=== PATIENT | female | born 1950 | race Caucasian/White ===

== ENCOUNTER → 2018-10-19 | Outpatient (CLI) | payer OTHER ==
[~2018-10-19] MED LIST: DICLOFENAC SODI75 MG PO; NEURONTIN 300300 M1 PO; NORCO 7.5-3251 EACH PO; NORVASC10 MG PO; OMEPRAZOLE40 MG PO; SYNTHROID75 MCG PO; TRAZODONE HCL50 MG PO; TYLENOL EXTRA500 MG PO; ZANAFLEX4 MG PO; ZOCOR20 MG PO
--- NOTE | ~2018-10-19 | PAINCON ---
[address] [address] PAIN MANAGEMENT CONSULTATION Name: CLARISSA CHAVEZ I Room: CHUCK RitterDeniseKirbyDenise#: [id number] Admission: 10/19/18 Attend Phys: Marlene Simms MD Discharge: Date of : 46 Report #: [id number] THIS REPORT FOR: //name// CC: Christoph Simms DATE OF SERVICE: 10/19/2018 CHIEF COMPLAINT: Left low back and leg pain. HISTORY OF PRESENT ILLNESS: The patient is a 68-year-old female who has been referred to the Pain Clinic for evaluation. The patient states that she has had some pain and discomfort off and on in her back over the years. She was walking down stairs on her porch. There was some sand in the area. States that she slipped and fell and landed on her back. Since that time, she has noted worsening of her back and buttocks pain. She is having pain that radiates down the left side of her leg. She has increased pain in her butt. She has had bilateral knee replacements. She has not noticed loosening of these. She is not having significant problems with her bowel or bladder. In fact, she states that she had bladder suspension in the years, and things are going reasonably well at this juncture. She states that she has spoken with her doctor. They have spoken of surgery. At this point, she feels like she is not ready to undergo surgery on her back. She does engage in quite a bit of traveling. She has relatives in [place], ____ and [place] and number of other states. She is quite busy with travel. She has been given a Medrol Dosepak. She did note some improvement during the early course of the steroid dosing, but that soon ____. She has been using [place] 7.5 mg as well as diclofenac and gabapentin. Has used the tizanidine to help with muscle spasms. She also has some left shoulder discomfort. Has a history of arthritis in the upper extremity. ALLERGIES: IODINE AND AZITHROMYCIN. MEDICATIONS: Tylenol Extra Strength 500 mg q. 6 hours p.r.n., Norvasc 10 mg, Voltaren 75 mg, gabapentin 300 mg q.i.d., hydrocodone 7.5 mg/325 q. 6 hours p.r.n., Synthroid 75 mcg, omeprazole 40 mg, Zocor 20 mg, tizanidine 4 mg t.i.d., Desyrel 50 mg 2 tablets at bedtime. PAST MEDICAL HISTORY: Bleeding tendencies, hypertension, joint disease/arthritis, hypothyroidism. Addendum to #[id number] PAST SURGICAL HISTORY: Appendectomy in 1965, bladder suspension in 1995, left as well as [place] [address] PAIN MANAGEMENT CONSULTATION Name: CLARISSA CHAVEZ I [facility] [id number] Admission: 10/19/18 Attend Phys: Marlene Simms MD Discharge: Date of : 46 Report #: [id number] SOCIAL HISTORY: She is retired, used to work at [employer]. REVIEW OF SYSTEMS: Generally good health, decreased appetite, fatigue, weakness, headaches, hearing loss, chronic sinus problems, swelling of feet, ankles, hands, loss of appetite, frequent urination, joint pain, joint stiffness, weakness of muscles and joints, muscle pain, back pain, varicose veins, easy bruising. LABORATORY DATA: MRI of the lumbar spine dated 09/29/2018 indicates: 1. Broad-based disk bulging noted asymmetric left greater than right. The findings cause mild right and moderate left lateral recess stenosis as well as foraminal narrowing on the left. 2. L2-L3, there is also a left lateral disk protrusion with left lateral stenosis and compression of the left L3 nerve root. There is also foraminal narrowing at L2-L3 on the left with compression of the left L2 nerve root. 3. L3-L4 degenerative disk bulging noted with kwsl-gq-fkrrrgbm lateral recess stenosis as well as ofnj-bc-pjxhhmsf foraminal narrowing. 4. L4-L5 disk bulge and facet arthropathy with mild left and moderate right-sided recess stenosis. There is bilateral foraminal narrowing, right greater than left. Slight compression of the right nerve root in the foramen. 5. L5-S1, small broad-based central protrusion without stenosis or nerve root compression. Facet arthropathy. 6. History of osteoarthritis. The patient has had replacements of left and right knees. The patient is not being treated for rheumatoid arthritis. 7. Height 5 feet 2 inches, weight 194 pounds, BMI is 36.5. 8. VITAL SIGNS: Blood pressure 168/75, heart rate 94, respiratory rate 16, room air saturation 94%, temperature 98.2. 9. Pain intensity 08/15. 10. Blood thinner. The patient is not on a blood thinning medication. 11. Fall risk. The patient did fall about 6 weeks ago landing on her back with worsening of her pain. 12. Hypertension. The patient is being treated for hypertension. 13. Opioid greater than 6 weeks. The patient receives her medication from one source her primary physician. 14. Risk assessment tool, low for opioid use. 15. Functional assessment . 16. Recreational drug use. The patient denies. 17. Tobacco: The patient denies use of tobacco. 18. Alcohol: The patient denies frequent use of alcoholic beverages. PHYSICAL EXAMINATION: GENERAL: The patient is a well-developed, well-nourished white female. Appears her stated age. She is alert and oriented x 3. Her affect is appropriate. Speech is fluent. HEAD, EYES, EARS, NOSE, AND THROAT: Normocephalic, atraumatic[place] [address] PAIN MANAGEMENT CONSULTATION Name: CLARISSA CHAVEZ Camille Room: [facility]#: [id number] Admission: 10/19/18 Attend Phys: Marlene Simms MD Discharge: Date of : 48 Report #: [id number] muscles intact. Sclerae nonicteric. Mucous membranes are moist. NECK: Without adenopathy or JVD. HEART: Regular rate, murmur heard 2/6. ABDOMEN: Nontender. Bowel sounds present. EXTREMITIES: Upper extremity muscle strength is judged to be 5-/5 for the major muscle groups in the upper extremity. The patient has pain and discomfort in lower back area. The patient without significant scoliosis or kyphosis. Pain is radiating down the left lateral buttocks and into the lateral portion of her thigh in the L5 dermatomal distribution. Anterior spring test is negative. Didier sign is negative. IMPRESSION: Lumbar radiculopathy, L4-L5 dermatomal distribution on the left with numbness, tingling and sensory changes, bleeding tendencies, hypertension, joint disease/arthritis, and hypothyroidism. RECOMMENDATIONS: We discussed treatment options with the patient. Risks and benefits of an epidural steroid injection were discussed. Possible complications of the procedure was discussed. A line by line review of her MRI was explained to the patient. She states that she understands. We would also recommend that she get a CD from her radiologist. She could then bring the CD back to the pain clinic at which time we could then go over it again. The possible complications of the procedure, which could be infection, worsening of pain, no improvement in pain, nerve damage, and spinal headache were discussed. The patient will return at which time she will then undergo an epidural steroid injection to help quell pain and discomfort which she is experiencing. We would like to thank you for letting us to participate in her care. We hope she continues to improve. By: [id number] [id number]. Howard Simms MD /nt
== END ==
LOC: M.PC 12:50
DX: M51.16 Intervertebral disc disorders with radiculopathy, lumbar region (principal); I10 Essential (primary) hypertension; E03.9 Hypothyroidism, unspecified; M19.90 Unspecified osteoarthritis, unspecified site; M48.061 Spinal stenosis, lumbar region without neurogenic claudication; Z79.891 Long term (current) use of opiate analgesic; Z88.1 Allergy status to other antibiotic agents; Z79.899 Other long term (current) drug therapy; Z96.653 Presence of artificial knee joint, bilateral; Z90.49 Acquired absence of other specified parts of digestive tract

== ENCOUNTER → 2018-10-21 | Outpatient (CLI) | payer OTHER ==
--- NOTE | ~2018-10-21 | PAINCON ---
[address] [address] PAIN MANAGEMENT CONSULTATION Name: CLARISSA CHAVEZ I Room: [facility] RUBINA Ritter.Kirby.#: [id number] Admission: 10/21/18 Attend Phys: Marlene Simms MD Discharge: Date of : 46 Report #: [id number] THIS REPORT FOR: //name// CC: Christoph Simms DATE OF SERVICE: 10/21/2018 CHIEF COMPLAINT: Here for an epidural steroid injection. HISTORY: The patient is a 68-year-old female who has been seen in the pain clinic because of low back pain with pain that is radiating down into the left buttocks and thigh in the L4-L5 dermatomal distribution. As you may recall, she is walking down stairs on her porch. Stepped on a nelly area. She slipped and fell and landed on her back. Since that time, she has had pain radiating down into her back and into the buttocks. She has had bilateral knee replacements. Denies any problem with her bowel or bladder function. The patient has spoken with her doctors. The topic of surgery has been suggested. At this point, the patient does not feel that she would like to consider surgery. She was given a Medrol Dosepak. Noted some improvement in this pain, but still continues to be problematic and has returned today for an epidural steroid injection. ALLERGIES: IODINE and AZITHROMYCIN. MEDICATIONS: Tylenol Extra Strength 500 mg q. 6 hours p.r.n., Norvasc 10 mg, Voltaren 75 mg, gabapentin 300 mg q.i.d., hydrocodone 7.5 mg q. 6 hours, Synthroid 75 mcg, omeprazole 40 mg, Zocor 20 mg, tizanidine 4 mg t.i.d., Desyrel 50 mg 2 tablets at bedtime. PAIN CLINIC ASSESSMENT/PQRS: 1. History of osteoarthritis. The patient has had replacement of her left and right knees. The patient is not being treated for rheumatoid arthritis. 2. Height 5 feet 2 inches, weight 199 pounds, BMI 36.5. 3. Vital signs: Blood pressure 138/79, heart rate 78, respiratory rate 16, room air saturation 91%, temperature 98.2. 4. Pain intensity 08/15/2018. 5. Fall history. The patient did slip and fall in the sand recently. 6. Hypertension. The patient is being treated for hypertension. 7. Opioids greater than 6 weeks. The patient receives medication from one source, her primary physician. 8. Risk assessment tool, low for opioid use. 9. Functional assessment tool, . 10. Recreational drug use. The patient denies use of recreational drugs. 11. Tobacco: The patient denies use of tobacco. 12. Alcohol: The patient denies frequent [place] [address] PAIN MANAGEMENT CONSULTATION Name: CLARISSA CHAVEZ I Room: [facility]#: [id number] Admission: 10/21/18 Attend Phys: Marlene Simms MD Discharge: Date of : 46 Report #: [id number] PHYSICAL EXAMINATION: GENERAL: The patient is a well-developed, well-nourished white female. Appears slightly obese. She appears her stated age. She is alert and oriented x 3. Her affect is appropriate. Speech is slow. HEENT: Normocephalic, atraumatic. Extraocular eye muscles intact. Sclerae nonicteric. Mucous membranes are moist. NECK: Without adenopathy or JVD. HEART: Regular rate, murmur is heard and is a 2/6. ABDOMEN: Nontender. Bowel sounds present. EXTREMITIES: Upper extremity muscle strength is judged to be 5/5 for the major muscle groups in the upper extremity. The patient has pain and discomfort down into her low back area. The patient without significant scoliosis, kyphosis or lordosis. The patient has pain that radiates around the left lateral buttocks into the anterior portion of her leg in the L5 dermatomal distribution. Didier's sign negative. Anterior spring test is negative. IMPRESSION: 1. Lumbar radiculopathy, L4-L5 distribution on the left with numbness, tingling and sensory changes, bleeding tendencies. 2. Hypertension. 3. Joint disease and arthritis. 4. Hypothyroidism. RECOMMENDATIONS: We discussed treatment options with the patient. Risks and benefits of a lumbar epidural steroid injection were again reviewed. Possible complications of the procedure were reviewed, they include but are not limited to infection, worsening of pain, no improvement in pain, bleeding, worsening of condition with nerve trauma or paralysis. The patient elects to proceed. PROCEDURE NOTE: The patient was taken to the procedure area. She was then assisted in getting on the examination table. Her all questions have been answered to the patient's satisfaction. Anterior, posterior as well as lateral viewing were implemented. A Betadine scrub to the patient's low back area at L4-L5 was performed. The L4-L5 interspace was then infiltrated with a 25-gauge needle. A 0.25% bupivacaine was injected. A 17-gauge Tuohy with loss of resistance technique was used to gain access to the epidural space. There was no CSF, heme or paresthesia. Total of 80 mg Depo-Medrol, 40 mg triamcinolone and 2 mL of 0.25% bupivacaine. A 0.25% bupivacaine was injected. The patient tolerated the procedure well. Pain decreased to 0 at the time of discharge. She will follow up in [place] [address] PAIN MANAGEMENT CONSULTATION Name: CLARISSA CHAVEZ I Room: [facility].#: [id number] Admission: 10/21/18 Attend Phys: Marlene Simms MD Discharge: Date of : 46 Report #: [id number] Total of 6 seconds fluoroscopy time was used. We would like to thank you for letting us participate in her care. We hope she continues to improve. By: 1501 [id number]. Howard Simms MD /nt
== END | disposition home or self-care (01) ==
LOC: M.PC 04:58
DX: M54.16 Radiculopathy, lumbar region (principal); G89.29 Other chronic pain; I10 Essential (primary) hypertension; M19.90 Unspecified osteoarthritis, unspecified site; E03.9 Hypothyroidism, unspecified; Z91.041 Radiographic dye allergy status; Z88.8 Allergy status to other drugs, medicaments and biological substances; Z79.891 Long term (current) use of opiate analgesic; Z79.899 Other long term (current) drug therapy; Z96.653 Presence of artificial knee joint, bilateral

== ENCOUNTER → 2018-11-30 | Outpatient (CLI) | payer OTHER ==
--- NOTE | ~2018-11-30 | PAINCON ---
[address] [address] PAIN MANAGEMENT CONSULTATION Name: CLARISSA CHAVEZ I Room: [facility] RUBINA Ritter.Kirby.#: [id number] Admission: 11/30/18 Attend Phys: Marlene Simms MD Discharge: Date of : 46 Report #: [id number] THIS REPORT FOR: //name// CC: Christoph Simms DATE OF SERVICE: 11/30/2018 CHIEF COMPLAINT: Low back and pain in the left buttocks and thigh. HISTORY OF PRESENT ILLNESS: The patient is a 68-year-old female who has been seen in the pain clinic with pain and discomfort that has been radiating down the left side involving the L4-L5 dermatomal distribution. She was walking down stairs on her porch. She slipped on the nelly area. After a fall, she landed on her back. Since that time, she has had pain that has been radiating down into her buttocks. She has had surgery in the past on her knees. She has had bilateral knee replacement. Denies any new bowel or bladder dysfunction since the last treatment. The patient has considered and wants to continue a conservative approach prior to any surgical intervention. She has returned today with the hope of undergoing an epidural steroid injection to help decrease her pain. The last injection was beneficial. ALLERGIES: IODINE AND AZITHROMYCIN. THE PATIENT IS ABLE TO TOLERATE IODINE ON SKIN. MEDICATIONS: Tylenol Extra Strength 500 mg q.6 hours p.r.n., Norvasc 10 mg, Voltaren 75 mg, gabapentin 300 mg q.i.d., hydrocodone 7.5 mg q.6 hours, Synthroid 75 mcg, omeprazole 40 mg, Zocor 20 mg, tizanidine 4 mg t.i.d., Desyrel 50 mg 2 tablets at bedtime. PAIN CLINIC ASSESSMENT AND PQRS: 1. Osteoarthritis. The patient has had replacement of her left and right knees. The patient is not being treated for rheumatoid arthritis. 2. Height 5 feet 2 inches, weight 202 pounds, BMI is 37.0. 3. Vital signs: Blood pressure 168/71, heart rate 62, respiratory rate 16, room air saturation 96%, temperature 98.1. 4. Pain intensity 11/15. 5. Fall history. The patient has not fallen since we saw her last. She is having pain and discomfort after a previous fall. 6. Hypertension. The patient is being treated for hypertension. 7. Opioids greater than 6 weeks. The patient receives medication from one source, her primary physician. 8. Risk assessment tool, low for opioid use. 9. Functional assessment tool, . 10. Recreational drug use. The patient denies use of recreational drugs. 11. Tobacco: The patient [place] [address] PAIN MANAGEMENT CONSULTATION Name: CLARISSA CHAVEZ I Room: [facility]#: [id number] Admission: 11/30/18 Attend Phys: Marlene Simms MD Discharge: Date of : 46 Report #: [id number] 12. Alcohol: The patient denies use of alcoholic beverages. PHYSICAL EXAMINATION: GENERAL: The patient is a well-developed, well-nourished, white female. Appears her stated age. She is slightly obese. She is alert and oriented x 3. Her affect is appropriate. Speech is fluent. HEENT: Normocephalic, atraumatic. Extraocular eye muscles intact. Sclerae nonicteric. Mucous membranes are moist. NECK: Without adenopathy or JVD. HEART: Regular rate. The patient has a murmur 2/6. ABDOMEN: Nontender. Bowel sounds present. EXTREMITIES: Upper extremity muscle strength is judged to be 5-/5 for the major muscle groups in the upper extremity. The patient without significant scoliosis, kyphosis or lordosis. The patient has pain that is radiating around the left lateral portion of her buttocks and down into the left leg in the L4-L5 dermatomal distribution. Anterior spring test is negative. IMPRESSION: 1. Lumbar radiculopathy, L4-L5 dermatomal distribution on the left with numbness, tingling and sensory changes. 2. Bleeding tendencies. 3. Hypertension. 4. Joint disease/arthritis. 5. Hypothyroidism. RECOMMENDATIONS: We discussed treatment options with the patient. Risks and benefits of an epidural steroid injection were discussed. They include but are not limited to infection, worsening of pain, no improvement in pain, nerve trauma with weakness and the patient elects to proceed. PROCEDURE NOTE: The patient was taken to the procedure area. She was assisted in getting on the examination table. Her back was sterilely prepped with a Betadine solution. A 0.25% bupivacaine was infiltrated. A 17-gauge Tuohy with loss of resistance technique at the L4-L5 interspace was performed. Aspiration was negative at the L4-L5 interspace. A total of 80 mg Depo-Medrol, 40 mg triamcinolone and 2 mL of 0.25% bupivacaine was injected. The patient tolerated the procedure well. Her pain decreased to 0 at the time of discharge. She will follow up in the future as needed. We would like to thank you for letting us participate in her care. We hope she continues to improve. By: 1549 [id number]. MD ULICES Quinones
== END | disposition home or self-care (01) ==
LOC: M.PC 05:43
DX: M54.16 Radiculopathy, lumbar region (principal); G89.29 Other chronic pain; I10 Essential (primary) hypertension; M19.90 Unspecified osteoarthritis, unspecified site; E03.9 Hypothyroidism, unspecified; Z98.890 Other specified postprocedural states; Z88.8 Allergy status to other drugs, medicaments and biological substances; Z91.041 Radiographic dye allergy status; Z79.899 Other long term (current) drug therapy; Z96.653 Presence of artificial knee joint, bilateral

== ENCOUNTER → 2019-01-06 | Outpatient (CLI) | payer OTHER ==
--- NOTE | 2019-01-12 16:51 | PAINCON ---
[address] [address] PAIN MANAGEMENT CONSULTATION Name: CLARISSA CHAVEZ I Room: CHUCK RitterJoseph#: [id number] Admission: 01/06/19 Attend Phys: Marlene Simms MD Discharge: Date of : 46 Report #: [id number] THIS REPORT FOR: //name// CC: Christoph Simms DATE OF SERVICE: 01/06/2019 FOLLOWUP COMPLAINT: Here for another injection, the last one helped and improved things by about 70%, but now the pain has started to recur. HISTORY: The patient is a 68-year-old female who has been followed in the pain clinic because of pain involving her low back. She has had pain that has been radiating down into the left side involving her L4-L5 area of her leg. Notes that when walking down stairs. Pain continues to be problematic. She slipped when she was walking down stairs initially. After the fall, she landed on her back. Since that time, she has had pain that has been radiating down into her buttocks. She denies any new bowel or bladder dysfunction. She also has been diagnosed with osteoarthritis and bone spurs in her left shoulder. She has some pain and discomfort in her right shoulder as well. Feels that hydrocodone, gabapentin and diclofenac have been beneficial. She receives these medications through her primary doctor. The patient has returned today with hopes of undergoing another epidural steroid injection and gleaning benefit from it. ALLERGIES: IODINE, AZITHROMYCIN. The patient is able to tolerate IODINE on her skin without problem. CURRENT MEDICATIONS: Tylenol Extra Strength 500 mg q. 6 hours p.r.n., Norvasc 10 mg, Voltaren 75 mg, gabapentin 300 mg q.i.d., hydrocodone 7.5 mg q. 6 hours p.r.n., Synthroid 75 mcg, omeprazole 40 mg, Zocor 20 mg, tizanidine 4 mg t.i.d., Desyrel 50 mg 2 tablets at bedtime. PAIN CLINIC ASSESSMENT/PQRS: 1. 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 Has some arthritic changes with spurs in her shoulders. The patient is not being treated for rheumatoid arthritis. 2. Height 5 feet 2 inches, weight 204 pounds, BMI is 37. 3. Vital Signs: Blood pressure 144/64, heart rate 69, respiratory rate 16, room air saturation 93%. 4. Pain intensity 4/10. 5. Fall history: The patient has not fallen, but did fall previously. 6. Hypertension. The patient is The patient is being treated for hypertension. 7. Opioid greater than 6 weeks. The patient receives her medication from her primary physician. 8. Risk assessment tool, [place] [address] PAIN MANAGEMENT CONSULTATION Name: CLARISSA CHAVEZ I Room: [facility]#: [id number] Admission: 01/06/19 Attend Phys: Marlene Simms MD Discharge: Date of : 46 Report #: [id number] 9. Functional assessment tool 7060. 10. Recreational drug use. The patient denies use of recreational drugs. 11. Tobacco: The patient denies use of tobacco. 13. Alcohol: The patient denies use of alcoholic beverages. PHYSICAL EXAMINATION: GENERAL: The patient is a well-developed, well-nourished white female. Appears her stated age. She is slightly obese. She is alert and oriented x 3. Her affect is appropriate. Speech is fluent. HEENT: Normocephalic, atraumatic. Extraocular eye muscles intact. Sclerae nonicteric. Mucous membranes are moist. NECK: Without adenopathy or JVD. HEART: Regular rate. The patient has a 2/6 systolic ejection murmur. ABDOMEN: Nontender. Bowel sounds present. EXTREMITIES: Upper extremity muscle strength judged to be 5-/5 for the major muscle groups of the upper extremity with some limitation in movement in her shoulders. The patient without significant scoliosis, kyphosis or lordosis. The patient does have pain that is radiating down to the left lateral portion of her buttocks and into her left leg at the L4-L5 dermatomal distribution. Anterior spring test is negative. IMPRESSION: 1. Lumbar radiculopathy, L4-L5 dermatomal distribution on the left with numbness, tingling and sensory changes. 2. Bleeding tendencies. 3. Hypertension. 4. Joint disease/arthritis. 5. Hypothyroidism. RECOMMENDATIONS: We discussed treatment options with the patient. Risks and benefits of an epidural steroid injection were again discussed. They include but are not limited to infection, worsening pain, no improvement in pain, increased muscle soreness, headache, nerve damage and the patient elects to proceed. PROCEDURE NOTE: The patient was taken to the procedure area. She was then assisted in getting on examination table. Her back was sterilely prepped with a Betadine solution at the L4-L5 area. Fluoroscopy using anterior, posterior as well as lateral viewing were implemented. A pillow was placed on her abdomen to bolster and improve positioning. Her back was infiltrated at the L4-L5 area with a 25-gauge needle. After this area had been numbed a 17-gauge Tuohy with loss of resistance technique using a left paramedian direction was undertaken. Aspiration was negative for heme and there was no paresthesia. A total of 80 mg Depo-Medrol, 40 mg triamcinolone and 2 mL of 0.25% bupivacaine was injected at the L4-L5 area. The patient tolerated the procedure well. There were no complications. She remained in the Pain Clinic for an appropriate amount of [facility] [address] [place] [address] PAIN MANAGEMENT CONSULTATION Name: CLARISSA CHAVEZ I Room: [facility]#: [id number] Admission: 01/06/19 Attend Phys: Marlene Simms MD Discharge: Date of : 46 Report #: [id number] time. She will follow up in the future as needed. We would like to thank you for letting us participate in her care. We hope she continues to improve. <ELECTRONICALLY SIGNED> By: Marlene Simms MD 01/12/19 1651 [id number] Simms MD /[facility]
== END | disposition home or self-care (01) ==
LOC: M.PC 05:14
DX: M54.16 Radiculopathy, lumbar region (principal); G89.29 Other chronic pain; I10 Essential (primary) hypertension; E03.9 Hypothyroidism, unspecified; M19.90 Unspecified osteoarthritis, unspecified site; Z79.01 Long term (current) use of anticoagulants; Z96.653 Presence of artificial knee joint, bilateral; Z91.041 Radiographic dye allergy status; Z79.891 Long term (current) use of opiate analgesic; Z88.8 Allergy status to other drugs, medicaments and biological substances; Z98.890 Other specified postprocedural states

== ENCOUNTER → 2019-04-26 | Outpatient (CLI) | payer OTHER ==
[~2019-04-26] MED LIST changes: +NABUMETONE 750750 M1 PO
--- NOTE | ~2019-04-26 | PAINCON ---
[address] [address] PAIN MANAGEMENT CONSULTATION Name: CLARISSA CHAVEZ I Room: CHUCK RitterJoseph#: [id number] Admission: 04/26/19 Attend Phys: Marlene Simms MD Discharge: Date of : 46 Report #: [id number] THIS REPORT FOR: //name// CC: EZEQUIEL Bright DATE OF SERVICE: 04/26/2019 CHIEF COMPLAINT: Pain has again started down my left and right leg. HISTORY: The patient is a 69-year-old female who has been seen in the Pain Clinic because of lumbar radiculopathy. She has undergone epidural steroid injections. These have been helpful. Pain involves the lower portion of her back in the L4-L5 area. Most of her pain is down the left side. It sometimes involves the right. She is anticipating going to [facility] in the next week for Thanksgiving. She would like to proceed with an epidural steroid injection. She has gleaned benefits from these. At this point, she rates her pain as a 4/10. She has less of the sharpness that she had in the past, but still feels that the pain is still problematic. Walking, sitting, standing, climbing stairs, bending and twisting can exacerbate her pain. She has found that rest as well as her medications are helpful. She is not having any problems with the hydrocodone medication. Also, feels that the gabapentin is helpful. She would like to proceed with another epidural steroid injection. ALLERGIES: IODINE, AZITHROMYCIN. The patient is able to tolerate IODINE on her skin without problem. CURRENT MEDICATIONS: Tylenol Extra Strength 500 mg q. 6 hours p.r.n., Norvasc 100 mg, Voltaren 75 mg, gabapentin 300 mg q.i.d., hydrocodone 7.5 mg q. 6 hours, Synthroid 75 mcg, omeprazole 40 mg, Zocor 20 mg, tizanidine 4 mg t.i.d., Desyrel 50 mg 2 tablets at bedtime. PAIN CLINIC ASSESSMENT/PQRS: 1. 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 She has had some arthritic changes in her shoulders. The patient is not being treated for rheumatoid arthritis. 2. Height 5 feet 2 inches, weight 190 pounds, BMI is 36.3. 3. Vital signs: Blood pressure 122/62, heart rate 61, respiratory rate 18, room air saturation 92% and temperature 98.2. 4. Pain intensity, 4/10. 5. Fall history: The patient has not fallen in the last 3 months. 6. Hypertension. The patient is being treated for hypertension. 7. Opioids greater than 6 weeks. The patient received medication from one source the Pain Clinic or primary physician. 8. Risk assessment tool, low [place] [address] PAIN MANAGEMENT CONSULTATION Name: CLARISSA CHAVEZ Camille Room: [facility]#: [id number] Admission: 04/26/19 Attend Phys: Marlene Simms MD Discharge: Date of : 46 Report #: [id number] 9. Functional assessment tool, . 10. Recreational drug use. The patient denies use of recreational drugs. 11. Tobacco: The patient denies use of tobacco. 12. Alcohol. The patient denies use of alcoholic beverages other than rare occasion. PHYSICAL EXAMINATION: GENERAL: The patient is a well-developed, well-nourished white female. Appears her stated age. She is alert and oriented x 3. She is somewhat obese and speech is fluent. HEENT: Normocephalic, atraumatic. Extraocular eye muscles intact. Sclerae nonicteric. Mucous membranes are moist. NECK: Without adenopathy or JVD. HEART: Regular rate. The patient has a 2/6 systolic ejection murmur. ABDOMEN: Nontender. Bowel sounds present. EXTREMITIES: Upper extremity muscle strength judged to be 5-/5 for the major muscle groups in the upper extremity. The patient is without significant scoliosis, kyphosis or lordosis. The patient has pain and discomfort that is radiating down the lower portion of her back in the L4-L5 dermatomal distribution primarily on the left, but also involving the right. IMPRESSION: 1. Lumbar radiculopathy, L4-L5 dermatomal area on the left with numbness, tingling and sensory changes. 2. Bleeding tendencies. 3. Hypertension. 4. Joint disease/arthritis. 5. Hypothyroidism. RECOMMENDATIONS: We discussed treatment options with the patient. Risks and benefits of an epidural steroid injection were again discussed. They include but are not limited to infection, worsening pain, no improvement in pain, possible nerve damage, possible spinal headache. The patient elects to proceed. PROCEDURE NOTE: The patient was taken to the procedure area. She was then assisted in getting on examination table. Her back was sterilely prepped with a Betadine solution. A 0.25% bupivacaine was infiltrated at the L4-L5 interspace. A 17-gauge Tuohy with loss of resistance technique was then used to gain access at the L4-L5 interspace. Aspiration was negative. A total of 80 mg Depo-Medrol, 40 mg triamcinolone and 2 mL of 0.25% bupivacaine was injected. The patient tolerated the procedure well. She remained in the Pain Clinic for an appropriate amount of time. She will follow up in [place] [address] PAIN MANAGEMENT CONSULTATION Name: CLARISSA CHAVEZ Camille Room: [facility].#: [id number] Admission: 04/26/19 Attend Phys: Marlene Simms MD Discharge: Date of : 48 Report #: [id number] We would like to thank you for letting us participate in her care. We hope she continues to improve. By: 1419 2131N. Howard Simms MD /nt
== END | disposition home or self-care (01) ==
LOC: M.PC 04:47
DX: M54.16 Radiculopathy, lumbar region (principal); G89.29 Other chronic pain; I10 Essential (primary) hypertension; M19.90 Unspecified osteoarthritis, unspecified site; E03.9 Hypothyroidism, unspecified; Z98.890 Other specified postprocedural states; Z79.899 Other long term (current) drug therapy; Z91.041 Radiographic dye allergy status; Z88.8 Allergy status to other drugs, medicaments and biological substances; Z79.891 Long term (current) use of opiate analgesic; Z96.651 Presence of right artificial knee joint; Z96.642 Presence of left artificial hip joint

== ENCOUNTER → 2019-06-28 | Outpatient (CLI) | payer OTHER ==
[~2019-06-28] MED LIST changes: +APPLE CIDER VI300 MG PO; +MELATONIN10 M3 PO; +MULTIVITAMINS1 EAC7 PO; +SUPER B COMPLE1 EAC2 PO; +TUMERIC CURCUMIN PO; +fish oil PO
--- NOTE | ~2019-06-28 | PAINCON ---
[address] [address] PAIN MANAGEMENT CONSULTATION Name: CLARISSA CHAVEZ I Room: [facility] RUBINA Ritter.Kirby.#: [id number] Admission: 06/28/19 Attend Phys: Marlene Simms MD Discharge: Date of : 46 Report #: [id number] THIS REPORT FOR: //name// CC: LIA physician/PCP Marlene Simms DATE OF SERVICE: 06/28/2019 CHIEF COMPLAINT: Pain in the hands, shoulders, legs, hips. HISTORY: The patient is a 69-year-old female who has been seen in the pain clinic in the past. Epidural steroid injections have been performed. They have been beneficial. She has noted some increased pain in her shoulders. Has some pain in her hands. There is pain in her hips as well as joints and down into her legs. She has been followed by her primary care physician who has been providing her medications. He is retiring at this juncture. She would like to continue with her current medications. She requests that her medications come from one source, the pain clinic. ALLERGIES: IODINE, AZITHROMYCIN. THE PATIENT TOLERATES IODINE ON HER SKIN. CURRENT MEDICATIONS: Tylenol Extra Strength 500 mg every 6 hours p.r.n., Norvasc 100 mg, Voltaren 75 mg, gabapentin 300 mg q.i.d., hydrocodone 7.5 mg every 6 hours p.r.n., Synthroid 7.5 mcg, omeprazole 40 mg, Zocor 20 mg, tizanidine 4 mg t.i.d., Desyrel 50 mg at bedtime. PAIN CLINIC ASSESSMENT/PQRS: 1. The patient has had a replacement of her left and right knee. She has some arthritic changes in her shoulders. She is not being treated for rheumatoid arthritis. 2. Height 5 feet 2 inches, weight 201 pounds, BMI 37. 3. Vital signs: Blood pressure 146/70, heart rate 75, respiratory rate 18, room air saturation temperature 97.7. 4. Pain intensity 2.5/10. 5. Fall history: The patient has not fallen in the last 3 months. 6. Blood thinner. The patient is not on a blood thinning medication. 7. Hypertension. The patient is being treated for hypertension. 8. Opioids greater than 6 weeks. The patient received medication from one source the pain clinic. She was receiving from her primary physician, but he is retiring. 9. Functional assessment tool 30/70. 10. Recreational drug use: The patient denies. 11. Tobacco: The patient denies. 12. Alcohol. The patient denies use of alcoholic beverages [place] [address] PAIN MANAGEMENT CONSULTATION Name: CLARISSA CHAVEZ I [id number] Admission: 06/28/19 Attend Phys: Marlene Simms MD Discharge: Date of : 46 Report #: [id number] PHYSICAL EXAMINATION: GENERAL: The patient is a well-developed, well-nourished white female. Appears her stated age. She is alert and oriented x 3. Her affect is appropriate. Speech is fluent. HEAD, EYES, EARS, NOSE, AND THROAT: Normocephalic, atraumatic. Extraocular eye muscles intact. Sclerae nonicteric. Mucous membranes are moist. NECK: Without adenopathy or JVD. HEART: Regular rate. The patient has a 2/6 systolic ejection murmur. ABDOMEN: Bowel sounds present. EXTREMITIES: Upper extremity muscle strength judged to be 5-/5 for the major muscle groups in the upper extremity. Has some shoulder discomfort. The patient without significant scoliosis, kyphosis or lordosis. The patient has pain, which is problematic when present in the L4-L5 dermatomal distribution. Has some pain and discomfort in her legs and hip joints. IMPRESSION: 1. Lumbar radiculopathy, L4-L5 dermatomal area with numbness and tingling. 2. Complex medical regimen using opioids to help control pain involving the shoulders, hands, legs and knee joints. 3. Hypothyroidism. RECOMMENDATIONS: We discussed treatment options with the patient. At this juncture, we will continue with the patient's use of hydrocodone. Feels that the medication has been beneficial. She takes 7.5 mg q.i.d. She has been receiving this from her primary physician. He is retiring at this juncture. I think it is reasonable to continue with her current medical regimen. A script for her medications have been written. She will continue with gabapentin 300 mg q.i.d., hydrocodone 7.5 mg one p.o. every 4-6 hours, Relafen and the muscle relaxant, tizanidine 4 mg t.i.d. She will call us if she has any concerns. We would like to thank you for letting us to participate in her care. We hope she continues to improve. By: 0923 [id number]. Howard Simms MD /LUZMARIA
== END ==
LOC: M.PC 09:00
DX: M54.16 Radiculopathy, lumbar region (principal); E03.9 Hypothyroidism, unspecified; Z79.899 Other long term (current) drug therapy

== ENCOUNTER → 2019-07-26 | Outpatient (CLI) | payer OTHER ==
--- NOTE | 2019-07-29 09:07 | PAINCON ---
[address] [address] PAIN MANAGEMENT CONSULTATION Name: CLARISSA CHAVEZ I Room: [facility] RUBINA Cordon.#: [id number] Admission: 07/26/19 Attend Phys: Marlene Simms MD Discharge: Date of : 48 Report #: [id number] THIS REPORT FOR: //name// cc: Christoph Gonzalez DO Christoph Gonzalez DO ~ THIS REPORT FOR: //name// CC: Christoph Simms DATE OF SERVICE: 07/26/2019 CHIEF COMPLAINT: "I have had a return of pain down in my back and leg and would like to have another injection." HISTORY: The patient is a 69-year-old female who has been seen in the pain clinic in the past because of lumbar radiculopathy. She has undergone epidural steroid injections in the past. She has found them beneficial. She returns today with similar pain. It involves in her low back area. It is radiating down into her left leg. Injections have been helpful. She rates her pain as a 1-2, but varies according to her level of activity. She recalled tripping while going upstairs at her grandson's home. She has returned today and would like to proceed with another epidural steroid injection. Notes that the cold weather, walking, sitting, standing, bending, and lifting have increased her level of discomfort. ALLERGIES: IODINE, AZITHROMYCIN, the patient tolerates IODINE on her skin if it is washed off. CURRENT MEDICATIONS: Tylenol Extra Strength 500 mg q. 6 hours p.r.n., Norvasc 100 mg, Voltaren gel 75 mg, gabapentin 300 mg q.i.d., hydrocodone 7.5 mg, Synthroid 75 mcg, omeprazole 40 mg, Zocor 20 mg, tizanidine 4 mg t.i.d., Desyrel 50 mg at bedtime. PAIN CLINIC ASSESSMENT AND PQRS: 1. The patient has had replacement of her left knee. She does have some arthritic changes in her shoulders. She is not being treated for rheumatoid arthritis. 2. Height 5 feet 2 inches, weight 203 pounds, BMI is 37.0. 3. Vital Signs: Blood pressure is 121/67, heart rate 84, respiratory rate 16, room air saturation 94%, temperature 98.3. 4. Pain intensity to 1-2/10. 5. Fall history: The patient did fall because of an uneven step at her grandson's place. 6. Blood thinner. The patient is not on a blood thinning medication. 7. Hypertension. The patient is [place] [address] PAIN MANAGEMENT CONSULTATION Name: CLARISSA CHAVEZ I Room: [facility]#: [id number] Admission: 07/26/19 Attend Phys: Marlene Simms MD Discharge: Date of : 48 Report #: [id number] 8. Opioids greater than 6 weeks. The patient received medication from one source the pain clinic. 9. Functional assessment tool 37/70. 10. Recreational drug use: The patient denies. 11. Tobacco: The patient denies. 12. Alcohol: The patient denies use of alcoholic beverages except on rare occasion. PHYSICAL EXAMINATION: GENERAL: The patient is a well-developed, well-nourished white female. Appears her stated age. She is alert and oriented x 3. Her affect is appropriate. Speech is fluent. HEENT: Normocephalic, atraumatic. Extraocular eye muscles intact. Sclerae nonicteric. Mucous membranes are moist. NECK: Without adenopathy or JVD. HEART: Regular rate 2/6 systolic ejection murmur. ABDOMEN: Nontender. Bowel sounds present. EXTREMITIES: Upper extremity muscle strength judged to be 5/5 for the major muscle groups in the upper extremity. The patient does complain of some pain and discomfort in the shoulder area. Does have pain and discomfort in the L5-S1 dermatomal distribution primarily on the left with pain radiating down to her left leg. IMPRESSION: 1. Lumbar radiculopathy, L4-L5 with pain radiating down the left leg with numbness and tingling. 2. Complex medical regimen using opioids to help control pain. 3. Chronic pain in shoulders, hands, legs and knees. 4. Hypothyroidism. RECOMMENDATIONS: We discussed treatment options with the patient. Risks and benefits of an epidural steroid injection were again discussed. They include, but are not limited to infection, worsening pain, no improvement in pain, spinal headache and the patient elects to proceed. PROCEDURE NOTE: The patient was taken to the procedure area. She was then assisted in getting on examination table. Her back was sterilely prepped with a Betadine solution. A 0.25% bupivacaine was infiltrated. A 17-gauge Tuohy with loss of resistance technique was used to gain access to the epidural space. There was no CSF, heme or paresthesia. Total of 80 mg Depo-Medrol, 40 mg triamcinolone and 2 mL of 0.25% bupivacaine was injected at the L4-L5 space. A pillow had been placed under the patient's abdomen to bolster and improve positioning. A total of 11 seconds fluoroscopy time was used. The patient will follow up in the future. A script for hydrocodone 7.5/325 mg one p.o. q. 4-6 hours, has been provided. The patient will call us if [place] [address] PAIN MANAGEMENT CONSULTATION Name: CLARISSA CHAVEZ Camille Room: [facility]#: [id number] Admission: 07/26/19 Attend Phys: Marlene Simms MD Discharge: Date of : 46 Report #: [id number] We would like to thank you for letting us participate in her care. We hope she continues to improve. <ELECTRONICALLY SIGNED> By: Marlene Simms MD 07/29/19 0907 [id number] [id number]. Howard Simms MD /PMT
== END | disposition home or self-care (01) ==
LOC: M.PC 04:30
DX: M54.16 Radiculopathy, lumbar region (principal); G89.29 Other chronic pain; E03.9 Hypothyroidism, unspecified; Z98.890 Other specified postprocedural states; Z79.899 Other long term (current) drug therapy; Z91.041 Radiographic dye allergy status; Z79.891 Long term (current) use of opiate analgesic; Z88.8 Allergy status to other drugs, medicaments and biological substances

== ENCOUNTER → 2019-08-18 | Outpatient (CLI) | payer OTHER ==
--- NOTE | ~2019-08-18 | OP ---
[address] [address] OPERATIVE REPORT Name: SCOTT,CLARISSA Camille Room: [facility] RUBINA Ritter.Kirby.#: [id number] Admission: 08/18/19 Attend Phys: Marlene Simms MD Discharge: Date of : 46 Report #: [id number] THIS REPORT FOR: //name// cc: Christoph Gonzalez DO Christoph Gonzalez DO ~ THIS REPORT FOR: //name// CC: Christoph Simms DATE OF SERVICE: 08/18/2019 CHIEF COMPLAINT: Continued low back pain and left sciatic pain. HISTORY: The patient is a 69-year-old female who has been followed in the pain clinic. She suffers from lumbar radiculopathy. Epidural steroid injections in the past have proven beneficial. She has noted worsening of pain and discomfort. She is having pain in her low back, the patient that is radiating down into the left sciatic area. She is contemplating going on vacation. She would like to undergo an epidural steroid injection prior to going on vacation. Notes that walking, sitting, standing, climbing stairs, bending and lifting can be more problematic at this juncture. She rates her pain as 5/10 today. ALLERGIES: IODINE, AZITHROMYCIN, the patient tolerates IODINE on her skin, if washed off. MEDICATIONS: Tylenol Extra Strength 500 mg, Norvasc 100 mg, Voltaren gel 75 mg, gabapentin 300 mg q.i.d., hydrocodone 7.5 mg, Synthroid 75 mcg, omeprazole 40 mg, Zocor 20 mg, tizanidine 4 mg t.i.d., Desyrel 50 mg at bedtime. PAIN CLINIC ASSESSMENT/PQRS: 1. The patient has had replacement of her knees. She does have some arthritic changes in her shoulders. She is not being treated for rheumatoid arthritis. 2. Height 5 feet 2 inches, weight 206 pounds, BMI is 37.6. 3. Vital signs: Blood pressure 154/84, heart rate 108, respiratory rate 16, room air saturation is 93%, temperature 98.1. 4. Pain intensity 10/15. 5. Fall history: The patient has not fallen since we saw her last. 6. Blood thinner. The patient is not on a blood thinning medication. 7. Hypertension. The patient is not being treated for hypertension. 8. Opioids greater than 6 weeks. The patient receives medication from one source, pain clinic. 9. Functional assessment tool 37. 10. Recreational drug use: The patient denies. 11. Tobacco: The patient denies. 12. Alcohol. The patient denies use of alcoholic [place] [address] OPERATIVE REPORT Name: SCOTTCLARISSA Ramon I Room: [facility]#: [id number] Admission: 08/18/19 Attend Phys: Marlene Simms MD Discharge: Date of : 46 Report #: [id number] occasion. PHYSICAL EXAMINATION: GENERAL: The patient is a well-developed, well-nourished white female. Appears her stated age. She is alert and oriented x 3. Her affect is appropriate. Speech is fluent. HEENT: Normocephalic, atraumatic. Extraocular eye muscles intact. Sclerae nonicteric. Mucous membranes are moist. NECK: Without adenopathy or JVD. HEART: Regular rate. A 2/6 systolic ejection murmur. ABDOMEN: Nontender. Bowel sounds present. EXTREMITIES: Upper extremity muscle strength judged to be 5-/5 for the major muscle groups in the upper extremity. The patient complains of some discomfort in the area of her shoulders. Has pain and discomfort in the L5-S1 dermatomal distribution involving pain, which radiates down into her left leg. IMPRESSION: 1. History of lumbar radiculopathy in the low back area. 2. Complex medication regimen using opioids to help control pain. 3. Chronic pain in shoulders, hands, legs and knees. 4. Hypothyroidism. RECOMMENDATIONS: We discussed treatment options with the patient. At this juncture, she will have her medications renewed. A script for hydrocodone 7.5 mg one p.o. 4-6 hours have been provided. The patient will follow up in the near future, at which time another epidural steroid injection will be considered. Pain has been most problematic in the L4-L5 dermatomal distribution on the left. She does continue to complain of pain in her knees bilaterally as well. We would like to thank you for letting us participate in her care. We hope she continues to improve. By: 2209 2232N. Howard Simms MD /shea
== END ==
LOC: M.PC 04:16
DX: M54.16 Radiculopathy, lumbar region (principal); G89.29 Other chronic pain; E03.9 Hypothyroidism, unspecified; Z79.891 Long term (current) use of opiate analgesic; Z79.899 Other long term (current) drug therapy

== ENCOUNTER → 2019-10-13 | Outpatient (CLI) | payer OTHER | END | disposition home or self-care (01) | LOC: M.PC 01:48 | DX: M54.16 Radiculopathy, lumbar region (principal); G89.29 Other chronic pain ==

== ENCOUNTER → 2019-11-10 | Outpatient (CLI) | payer OTHER ==
[~2019-11-10] MED LIST changes: +FUROSEMIDE 20 M20 MG PO
--- NOTE | 2019-11-11 15:54 | PAINCON ---
[address] [address] PAIN MANAGEMENT CONSULTATION Name: CLARISSA CHAVEZ I Room: [facility] RUBINA Cordon.#: [id number] Admission: 11/10/19 Attend Phys: Marlene Simms MD Discharge: Date of : 46 Report #: [id number] THIS REPORT FOR: //name// cc: Ashok Garcia Vincent R. DO ~ THIS REPORT FOR: //name// CC: Marlene Garcia DATE OF SERVICE: 11/10/2019 CHIEF COMPLAINT: Here for medication renewal. HISTORY: The patient is a 69-year-old female who has been followed in the pain clinic. She suffers from lumbar radiculopathy. Epidural steroid injections have been helpful in the past. She still finds that her pain is problematic. She feels that the hydrocodone continues to help with pain and discomfort. She rates her pain today as a 4-5/10. She has pain above her left hip and buttocks area. She has had no complication from the previous treatments. She has returned today with the hopes of renewing her medication. She notes increased pain and discomfort with certain activities such as bending and lifting. She continues to be followed by Rheumatology, Dr. Sheikh. She rates her pain as about 50% improved. She is able to do more physical activity with less pain. ALLERGIES: IODINE, AZITHROMYCIN. The patient tolerates Iodine on skin. CURRENT MEDICATIONS: Norvasc 10 mg, simvastatin 20 mg, levothyroxine 75 mcg, gabapentin 300 mg t.i.d., tizanidine 4 mg t.i.d., trazodone 50 mg at bedtime, Tylenol Extra Strength p.r.n., Relafen 750 mg b.i.d., fish oil 1200 mg, melatonin 10 mg, turmeric 1 tablet twice daily, vitamin B complex, multivitamins, Cielo vinegar 300 mg, and Lasix 20 mg. PAIN CLINIC ASSESSMENT AND PQRS: 1. The patient has had a replacement of her knees bilaterally. She has some arthritic changes in her shoulders. She states that she is being treated by a progress worker. 2. Height 5 feet 2 inches, weight 201 pounds, BMI is 37. 3. Vital signs: Blood pressure 139/88, heart rate 98, respiratory rate 16, room air saturation 95%, temperature 98.7. 4. Pain intensity 3.5/10. 5. Fall history: The patient has not fallen in the last 3 months. 6. Blood thinner. The patient is not on a blood thinning medication. 7. Hypertension. The patient is being treated for hypertension. 8. Opioids greater than 6 weeks. The patient receives medication from [place] [address] PAIN MANAGEMENT CONSULTATION Name: CLARISSA CHAVEZ I Room: [facility]#: [id number] Admission: 11/10/19 Attend Phys: Marlene Simms MD Discharge: Date of : 46 Report #: [id number] 9. Risk assessment tool, low for opioid use. 10. Functional assessment tool 37/50. 11. Recreational drug use. The patient denies. 12. Tobacco: The patient denies. 13. Alcohol: The patient rarely drinks alcoholic beverages. PHYSICAL EXAMINATION: GENERAL: The patient is a well-developed, well-nourished, somewhat obese white female. She appears her stated age. She is alert and oriented x 3. Her affect is appropriate. Speech is fluent. HEENT: Normocephalic, atraumatic. Extraocular eye muscles intact. Sclerae nonicteric. Mucous membranes are moist. NECK: Without adenopathy or JVD. HEART: Regular rate. History of grade 2 systolic ejection murmur. ABDOMEN: Nontender. Bowel sounds present. EXTREMITIES: Upper extremity muscle strength judged to be 5/5 for the major muscle groups in the upper extremity. The patient has some pain in her shoulders. She has lower extremity pain in the low back area particularly above the left hip and down into the left buttocks area. IMPRESSION: 1. History of lumbar radiculopathy. 2. Low back pain. 3. Complex medical management using opioids to help control pain. 4. Shoulder pain. 5. Leg pain. 6. Knee pain. 7. Hypothyroidism. RECOMMENDATIONS: We discussed treatment options with the patient. At this juncture, we will continue with her medications. She feels the medications provide benefit. She does not have any problems with her medications. She feels that she is able to think clearly. She feels that the hydrocodone medication continues to be value. We will continue with her medications. A script for hydrocodone 7.5 mg 1 p.o. 4 times daily have been prescribed. The patient will call us if she has any concerns. The patient is aware that opioid medications can become less effective as time goes on because of development of tolerance. We would like to thank you for letting us participate in her care. We hope she continues to improve. <ELECTRONICALLY SIGNED> By: Marlene Simms MD 11/11/19 1554 [id number] 1330N. Howard Simms MD /nt
== END ==
LOC: M.PC 03:56
DX: Z76.0 Encounter for issue of repeat prescription (principal); M54.16 Radiculopathy, lumbar region; E03.9 Hypothyroidism, unspecified; Z79.891 Long term (current) use of opiate analgesic

== ENCOUNTER → 2019-11-22 | Outpatient (CLI) | payer OTHER ==
[~2019-11-22] MED LIST changes: +HYDROCODONE-AP1 EA11 PO
--- NOTE | 2019-11-22 12:53 | 2DMMODE ---
[place] [address] 2 D/M-MODE ECHOCARDIOGRAM Name: SCOTTCLARISSA Camille Room: [facility].#: [id number] Admission: 11/22/19 Attend Phys: Ashok Garcia Discharge: Date of : 46 Date of Service: 11/22/19 1252 Report #: [id number] THIS REPORT FOR: cc: Ashok Garcia,Ashok Lee,Mode Skelton MD [facility] ~ APPROVED REPORT Study performed: 11/22/2019 10:45:36 EXAM: Comprehensive 2D, Doppler, and color-flow Echocardiogram Patient Location: Out-Patient BSA: 1.89 HR: 94 bpm BP: 122/84 mmHg Other Information Study Quality: Good Indications Murmur 2D Dimensions IVSd: 10.15 (7-11mm) LVOT Diam: 20.71 (18-24mm) LVDd: 39.03 mm PWd: 10.26 (7-11mm) Ascending Ao: 31.80 (22-36mm) LVDs: 29.29 (25-40mm) Aortic Root: 26.56 mm Volumes Left Atrial Volume (Systole) LA ESV Index: 26.60 mL/m2 Aortic Valve AoV Peak Nick.: 2.81 m/s AO Peak Gr.: 31.61 mmHg LVOT Max P.58 mmHg AO Mean Gr.: 18.87 mmHg LVOT Mean P.59 mmHg LVOT Max V: 1.07 m/s AO V2 VTI: 50.56 cm LVOT Mean V: 0.75 m/s RENATA (VTI): 1.39 cm2 LVOT V1 VTI: 20.86 cm Mitral Valve MV Decel. Time: 221.17 [place] [address] 2 D/M-MODE ECHOCARDIOGRAM Name: CLARISSA CHAVEZ I Room: [facility] RUBINA Juárez#: [id number] Admission: 11/22/19 Attend Phys: Ashok Garcia Discharge: Date of : 46 Date of Service: 11/22/19 1252 Report #: [id number] PHT: 64.14 ms MVA (PHT): 3.43 cm2 TDI Medial E' Nick.: 0.08 m/s Lateral E' Nick.: 0.12 m/s Pulmonary Valve PV Peak Nick.: 0.99 m/s PV Peak Gr.: 3.90 mmHg Tricuspid Valve RAP Estimate: 5.00 mmHg TR Peak Gr.: 22.37 mmHg RVSP: 27.37 mmHg PA Pressure: 27.37 mmHg Left Ventricle The left ventricle is normal size. There is normal LV segmental wall motion. There is normal left ventricular wall thickness. Left ventricular systolic function is normal. The left ventricular ejection fraction is within the normal range. LVEF is 55-60%. This study is not technically sufficient to allow evaluation of the LV diastolic function. Right Ventricle The right ventricle is normal size. The right ventricular systolic function is normal. Atria The left atrium size is normal. The right atrium size is normal. Aortic Valve Aortic valve is calcified. Mild aortic regurgitation. moderate aortic stenosis. Mitral Valve Mild mitral annular calcification. The mitral valve is normal in structure. Mild mitral regurgitation. No evidence of mitral valve stenosis. Tricuspid Valve The tricuspid valve is normal in structure. Mild tricuspid regurgitation. estimated pa pressure 25 mm Hg Pulmonic Valve Pulmonic valve is not well visualized. There is no [place] [address] 2 D/M-MODE ECHOCARDIOGRAM Name: CLARISSA CHAVEZ I Room: [facility] Juárez#: [id number] Admission: 11/22/19 Attend Phys: Ashok Garcia Discharge: Date of : 46 Date of Service: 11/22/19 1252 Report #: [id number] regurgitation. Great Vessels The aortic root is normal in size. IVC is normal in size and collapses >50% with inspiration. Pericardium There is no pericardial effusion. <Conclusion> LVEF is 55-60%. moderate aortic stenosis. Mild aortic regurgitation. Mild mitral regurgitation. <ELECTRONICALLY SIGNED> By: Mode Fontaine MD, FAC 11/22/19 1252 1252 125 Mode Fontaine MD, [facility] /INF
== END ==
LOC: M.CRD 10:52
PROVIDERS: ATTEND Family Medicine
DX: I08.3 Combined rheumatic disorders of mitral, aortic and tricuspid valves (principal); F51.01 Primary insomnia

== ENCOUNTER → 2019-12-13 | Outpatient (CLI) | payer OTHER ==
--- NOTE | 2019-12-28 08:36 | PAINCON ---
[address] [address] PAIN MANAGEMENT CONSULTATION Name: SCOTT,CLARISSA Camille Room: [facility] RUBINA RitterDeniseKirby.#: [id number] Admission: 12/13/19 Attend Phys: Marlene Simms MD Discharge: Date of : 46 Report #: [id number] THIS REPORT FOR: //name// cc: Ashok Garcia Vincent R. DO ~ THIS REPORT FOR: //name// CC: Marlene Garcia DATE OF SERVICE: 12/13/2019 CHIEF COMPLAINT: Low back and left leg pain. HISTORY: The patient is a 69-year-old female who has been followed in the pain clinic because of chronic pain. She is experiencing pain in the low back and has undergone epidural steroid injections in the past, which have been quite helpful. She rates her pain as a 4/10. She slipped in a grocery store about a month ago. She went down to her knees. She could not get up. She was helped up with assistance. She does have some problem with rheumatoid arthritis and is being followed by her physician. Rates her pain today greater than 50% improved with her medication. Does note some problems with prolonged walking and standing. 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 ALLERGIES: IODINE, AZITHROMYCIN, TOLERATES IODINE ON SKIN. CURRENT MEDICATIONS: Norvasc, simvastatin 20 mg, levothyroxine 75 mcg, gabapentin 300 mg t.i.d., tizanidine 4 mg t.i.d., trazodone 50 mg at bedtime, Tylenol Extra Strength, Relafen 750 mg b.i.d., fish oil 1200 mg, melatonin 10 mg, turmeric 1 mg b.i.d., vitamin B12 complex, multivitamins, Lasix 20 mg. PAIN CLINIC ASSESSMENT/PQRS: 1. The patient has had bilateral replacements of her knees. Does have some arthritic pain in her shoulders. She is being treated by creative technologist. 2. Height 5 feet 2 inches, weight 204 pounds, BMI is 37.3. 3. Vital signs: Blood pressure 146/78, heart rate 95, respiratory rate 16, room air saturation 99%, temperature 98.3. 4. Pain score 4/10. 5. Fall history: The patient recently fell in the store. 6. Blood thinner. The patient is not on a blood thinning medication. 7. Hypertension. The patient is being treated for hypertension. 8. Opioids greater than 6 weeks. The patient receives medication from one source, pain clinic. 9. Risk assessment tool, low for opioid use. 10. Functional assessment tool 37/50. [place] [address] PAIN MANAGEMENT CONSULTATION Name: CLARISSA CHAVEZ I [facility] [id number] Admission: 12/13/19 Attend Phys: Marlene Simms MD Discharge: Date of : 46 Report #: [id number] 11. Recreational drug use. The patient denies. 12. Tobacco: The patient denies. 13. Alcohol: The patient rarely drinks alcoholic beverages. PHYSICAL EXAMINATION: GENERAL: The patient is a well-developed, well-nourished, obese white female, appears her stated age. She is alert and oriented x 3. Her affect is appropriate. Speech is fluent. HEENT: Normocephalic, atraumatic. Extraocular eye muscles intact. Sclerae nonicteric. Mucous membranes are moist. The patient is wearing a mask. NECK: Without adenopathy or JVD. HEART: Regular rate. History of grade 2 systolic ejection murmur. ABDOMEN: Nontender. Bowel sounds present. EXTREMITIES: Upper extremity muscle strength 5/5 for the major muscle groups in the upper extremity. The patient has pain and discomfort in her shoulder. She has some pain in the low back area and has pain radiating down into her left leg. Her left hip is involved. History of L4-L5 lumbar radiculopathy. IMPRESSION: 1. History of lumbar radiculopathy, L4-L5. 2. Low back pain. 3. Complex medical management using opioids to help control pain. 4. Shoulder pain. 5. Leg pain. 6. Knee pain, bilateral knee replacements. 7. Hypothyroidism. RECOMMENDATIONS: We discussed treatment options with the patient. At this juncture, we will continue with her medications. The patient will continue with hydrocodone 7.5 mg 1 p.o. q.i.d. She will call us if she has any concerns. We would like to thank you for letting us to participate in her care. We hope she continues to improve. <ELECTRONICALLY SIGNED> By: Marlene Simms MD 12/28/19 0836 0823 1330N. Howard Simms MD /LUZMARIA
== END ==
LOC: M.PC 04:10
PROVIDERS: ATTEND Anesthesiology Pain Medicine
DX: M54.16 Radiculopathy, lumbar region (principal); M54.5 Low back pain; E03.9 Hypothyroidism, unspecified; M25.519 Pain in unspecified shoulder; M79.606 Pain in leg, unspecified; M25.562 Pain in left knee; M25.561 Pain in right knee; F11.90 Opioid use, unspecified, uncomplicated

== ENCOUNTER → 2020-01-10 | Outpatient (CLI) | payer OTHER ==
--- NOTE | 2020-01-20 08:16 | PAINCON ---
[address] [address] PAIN MANAGEMENT CONSULTATION Name: SCOTT,CLARISSA Camille Room: [facility] RUBINA Cordon.#: [id number] Admission: 01/10/20 Attend Phys: Marlene Simms MD Discharge: Date of : 46 Report #: [id number] THIS REPORT FOR: //name// cc: Ashok Garcia Vincent R. DO ~ THIS REPORT FOR: //name// CC: Marlene Garcia DATE OF SERVICE: 01/10/2020 CHIEF COMPLAINT: Pain down the left leg. HISTORY: The patient is a 69-year-old female who has been followed in the pain clinic because of chronic low back pain. She suffers from sciatica. She has been experiencing pain that is radiating down into her left leg. She would like to consider an epidural steroid injection today. She has stopped taking her Xarelto in preparation for the injection. She rates her pain today as a 7/10. She notes that the pain is worse with activities. Walking, climbing stairs, bending and twisting are problematic. She finds her medications are helpful. She has used cold to the affected area as well as notes improvement with rest. Overall, she is about 45% improved in her condition at this juncture. Activity such as furnace feeder continue to be problematic. ALLERGIES: IODINE, AZITHROMYCIN. The patient tolerates iodine on the skin. CURRENT MEDICATIONS: Norvasc, simvastatin 20 mg, levothyroxine 75 mcg, gabapentin 300 mg t.i.d., tizanidine 4 mg t.i.d., trazodone 50 mg at bedtime, Tylenol Extra Strength, Relafen 750 mg b.i.d., fish oil 1200 mg, melatonin 10 mg, turmeric 1 mg b.i.d., vitamin B12 complex, multivitamins, Lasix 20 mg. PAIN CLINIC ASSESSMENT AND PQRS: 1. The patient has some pain and has had bilateral knee replacements. She does have some arthritic complaints in her shoulder. 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 2. Height 5 feet 2 inches, weight 199 pounds, BMI is 37. 3. Vital Signs: Blood pressure 162/99, heart rate 98, respiratory rate 16, room air saturation 96%, temperature 97.4. 4. Pain intensity: 7/10. 5. Fall history: The patient has not fallen since we saw her last. 6. Blood thinner: The patient is not on a blood thinning medication. 7. Hypertension: The patient is being treated for hypertension. 8. Opioids greater than 6 weeks: The patient receives medication from the pain clinic. 9. Risk assessment tool: Low [place] [address] PAIN MANAGEMENT CONSULTATION Name: CLARISSA CHAVEZ I Room: [facility]#: [id number] Admission: 01/10/20 Attend Phys: Marlene Simms MD Discharge: Date of : 46 Report #: [id number] 10. Recreational drug use: The patient denies. 11. Functional assessment tool: 37/50. 12. Tobacco: The patient denies. 13. Alcohol: The patient rarely drinks alcoholic beverages. PHYSICAL EXAMINATION: GENERAL: The patient is a well-developed, well-nourished white female. She is somewhat obese. She is alert and oriented x 3. Her affect is appropriate. Speech is fluent. HEENT: Normocephalic, atraumatic. Extraocular eye muscles intact. Sclerae nonicteric. Mucous membranes are moist. The patient is wearing a mask. NECK: Without adenopathy or JVD. HEART: Regular rate. History of grade 2 systolic ejection murmur. ABDOMEN: Nontender. Bowel sounds present. LUNGS: Clear. EXTREMITIES: Upper extremity muscle strength judged to be 5/5 for the major muscle groups in the upper extremity. The patient has some discomfort in her shoulders. Complains of low back pain. She has pain, which involves the left leg. IMPRESSION: 1. History of L4-L5 dermatomal pain. 2. Low back pain. 3. Complex medical management using opioids to help control pain. 4. Shoulder pain. 5. Left knee pain. 6. History of bilateral knee replacements. 7. Hypothyroidism. RECOMMENDATIONS: We discussed treatment options with the patient. We will consider an epidural steroid injection. She recently stated xarelto. Her last dose was yesterday. We will have her contact the prescribing doctor and if she can stop it will return in the near future for an injection. Risks and benefits of the procedure were discussed with the patient. They include but are not limited to infection, worsening pain, no improvement in pain, nerve pain, and spinal headache. We would like to thank you for letting us participate in her care. We hope she continues to improve. <ELECTRONICALLY SIGNED> By: Marlene Simms MD 01/20/20 0816 0823 1807N. Howard Simms MD /nt
== END ==
LOC: M.PC 02:19
PROVIDERS: ATTEND Anesthesiology Pain Medicine
DX: M79.605 Pain in left leg (principal); M54.5 Low back pain; M25.519 Pain in unspecified shoulder; M25.562 Pain in left knee; E03.9 Hypothyroidism, unspecified; F11.20 Opioid dependence, uncomplicated; Z96.653 Presence of artificial knee joint, bilateral; Z87.39 Personal history of other diseases of the musculoskeletal system and connective tissue; Z88.8 Allergy status to other drugs, medicaments and biological substances; Z79.899 Other long term (current) drug therapy

== ENCOUNTER → 2020-01-19 | Outpatient (CLI) | payer OTHER ==
[~2020-01-19] MED LIST changes: +ELIQUIS5 MG PO; +KRILL OIL 5001 EACH PO; +LISINOPRIL PO; +MAGNESIUM250 M1 PO; -NEURONTIN 300300 M1 PO; +Neurontin PO
--- NOTE | 2020-02-07 15:37 | PAINCON ---
[address] [address] PAIN MANAGEMENT CONSULTATION Name: CLARISSA CHAVEZ I Room: [facility] RUBINA Ritter.Kirby.#: [id number] Admission: 01/19/20 Attend Phys: Marlene Simms MD Discharge: Date of : 46 Report #: [id number] THIS REPORT FOR: //name// cc: Ashok Garcia Vincent R. DO ~ THIS REPORT FOR: //name// CC: Marlene Garcia DATE OF SERVICE: 01/19/2020 PRIMARY CARE PHYSICIAN: Ashok Garcia DO CHIEF COMPLAINT: Pain radiating down to the left leg. HISTORY: The patient is a 69-year-old female who has been followed in the pain clinic. She does suffer from sciatica. States that she was moving a heavy refrigerator noticed some increased pain and discomfort down into her leg. She has stopped taking her blood thinning medication with a desire to undergo an epidural steroid injection. She has found that these have been beneficial. Pain continues to radiate down the left leg, low back area and rates it as 7/10 at this point. She has been using her hydrocodone medications, gabapentin and muscle relaxant, tizanidine. She has returned today with a desire to undergo an injection. ALLERGIES: IODINE, AZITHROMYCIN. The patient tolerates IODINE on skin. CURRENT MEDICATIONS: Norvasc, simvastatin 20 mg, levothyroxine 75 mcg, gabapentin 300 mg t.i.d., tizanidine 4 mg t.i.d., trazodone 50 mg at bedtime, Tylenol Extra Strength, Relafen 750 mg b.i.d., fish oil 1200 mg, melatonin 10 mg, turmeric 1 mg b.i.d., vitamin B12 complex, multivitamins, Lasix 20 mg. PAIN CLINIC ASSESSMENT AND PQRS: 1. The patient has some pain and discomfort in her knees and has had bilateral knee replacement. She does have some arthritic complaints in her shoulders. 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 2. Height 5 feet 2 inches, weight 199 pounds, BMI is 36.4. 3. Vital Signs: Blood pressure 107/70, heart rate 84, respiratory rate 16, room air saturation is 94%, temperature 98.1. 4. Pain intensity 10. 5. Fall history: The patient has not fallen since we saw her last. 6. Blood thinner. The patient has stopped taking her blood thinning medication. 7. Hypertension. The patient is being treated for hypertension. 8. Opioids greater than 6 weeks. The [place] [address] PAIN MANAGEMENT CONSULTATION Name: CLARISSA CHAVEZ I Room: [facility] Franck#: [id number] Admission: 01/19/20 Attend Phys: Marlene Simms MD Discharge: Date of : 46 Report #: [id number] clinic. 9. Risk assessment tool, low for opioid use. 10. Recreational drug use. The patient denies. 11. Functional assessment tool 37/50. 12. Tobacco: The patient denies use of tobacco. 13. Alcohol: The patient rarely drinks alcoholic beverages. PHYSICAL EXAMINATION: GENERAL: The patient is a well-developed, well-nourished white female. Appears her stated age. She is somewhat obese. She is alert and oriented x 3. Her affect is appropriate. Speech is fluent. HEENT: Normocephalic, atraumatic. Extraocular eye muscles intact. Sclerae nonicteric. Mucous membranes are moist. The patient is wearing a facial covering. NECK: Without adenopathy or JVD. HEART: Regular rate. History of grade 2 systolic ejection murmur. ABDOMEN: Nontender. Bowel sounds present. LUNGS: Clear. EXTREMITIES: Upper extremity muscle strength judged to be 5-/5 for the major muscle groups in the upper extremity. The patient has some discomfort in her shoulders. She contained some low back pain. Has pain, which radiates down into her left leg in the L4-L5 dermatomal distribution. IMPRESSION: 1. History of lumbar L4-L5 dermatomal pain. 2. Low back pain. 3. Complex medical management using opioids to help control pain. 4. Shoulder pain. 5. Left knee pain. 6. History of bilateral knee replacements. 7. Hypothyroidism. RECOMMENDATIONS: We discussed treatment options with the patient. Risks and benefits of an epidural steroid injection were discussed. Possible complications of the procedure, which could include but are not limited to infection, worsening pain, no improvement in pain, spinal headache were discussed. The patient elects to proceed. PROCEDURE NOTE: The patient was taken to the procedure area. She was then assisted in getting on the examination table. Her back was sterilely prepped with a Betadine solution. A 0.25% bupivacaine was infiltrated in the back area. Fluoroscopy using anterior, posterior as well as lateral viewing were implemented. At the L4-L5 area, 0.25% bupivacaine was infiltrated using a 25-gauge needle. After this area had been anesthetized, a 17-gauge Tuohy with loss of resistance technique was used to gain access to the epidural space. There was no CSF, heme or paresthesia. Total of 80 mg Depo-Medrol, [address] [id number] PAIN MANAGEMENT CONSULTATION Name: CLARISSA CHAVEZ Camille Room: [facility]#: [id number] Admission: 01/19/20 Attend Phys: Marlene Simms MD Discharge: Date of : 46 Report #: [id number] triamcinolone and 2 mL of 0.25% bupivacaine was injected. The patient tolerated the procedure well. A total of 17 seconds fluoroscopy time was used. The patient remained in the pain clinic for an appropriate amount of time. She will follow up in the near future. We would like to thank you for letting us participate in her care. We hope she continues to improve. <ELECTRONICALLY SIGNED> By: Marlene Simms MD 02/07/20 1537 2142 0541N. Howard Simms MD /[facility]
== END | disposition home or self-care (01) ==
LOC: M.PC 01:47
PROVIDERS: ATTEND Anesthesiology Pain Medicine
DX: M54.16 Radiculopathy, lumbar region (principal); G89.29 Other chronic pain; M54.5 Low back pain; I10 Essential (primary) hypertension; E03.9 Hypothyroidism, unspecified; Z98.890 Other specified postprocedural states; Z79.899 Other long term (current) drug therapy; Z79.891 Long term (current) use of opiate analgesic; Z96.653 Presence of artificial knee joint, bilateral; Z88.8 Allergy status to other drugs, medicaments and biological substances; Z91.041 Radiographic dye allergy status; Z79.01 Long term (current) use of anticoagulants

== ENCOUNTER → 2020-02-07 | Outpatient (CLI) | payer OTHER ==
--- NOTE | 2020-03-01 08:38 | PAINCON ---
[address] [address] PAIN MANAGEMENT CONSULTATION Name: SCOTTCLARISSA Ramon I Room: [facility] RUBINA RitterDeniseKirby.#: [id number] Admission: 02/07/20 Attend Phys: Marlene Simms MD Discharge: Date of : 46 Report #: [id number] THIS REPORT FOR: //name// cc: Ashok Garcia Vincent R. DO ~ THIS REPORT FOR: //name// CC: Marlene Garcia DATE OF SERVICE: 02/07/2020 CHIEF COMPLAINT: Low back and left leg pain. HISTORY: The patient is a 70-year-old female, who has been seen in the past because of lumbar radiculopathy. She underwent an epidural steroid injection at the last visit. She noticed that she is having less pain in her left leg. She feels that the pain has decreased and rates it as a 3/10. She notes that activity, walking, standing, bending, and lifting can be problematic. She is scheduled to see her therapeutic massage technician in the next week or so. She finds that with her medications as well as with the epidural steroid injection, her pain level now is 2-3, which is about 60% improved. She has returned today for renewal of her medications. ALLERGIES: IODINE, AZITHROMYCIN. THE PATIENT TOLERATES IODINE ON HER SKIN. CURRENT MEDICATIONS: Norvasc, simvastatin 20 mg, levothyroxine 75 mcg, gabapentin 300 mg t.i.d., tizanidine 4 mg t.i.d., trazodone 50 mg at bedtime, Tylenol Extra Strength, Relafen 750 mg b.i.d., fish oil 1200 mg, melatonin 10 mg, turmeric 1 mg b.i.d., vitamin B12 complex, multivitamins, Lasix 20 mg. PAIN CLINIC ASSESSMENT AND PQRS: 1. The patient has a history of pain and discomfort involving her knees bilaterally and has had knee replacement. She does have some arthritic complaints in her shoulders. She is not being treated for rheumatoid arthritis. 2. Height 5 feet 2 inches, weight 198 pounds, BMI is 36.4. 3. Vital signs: Blood pressure 153/86, heart rate 98, respiratory rate 16, room air saturation 94%, temperature 98.1. 4. Pain intensity: 10. 5. Fall history: The patient has not fallen since we saw her last. 6. Blood thinner: The patient is not on a blood thinning medication. 7. Opioids greater than 6 weeks: The patient receives medications from the Pain Clinic. 8. Risk assessment tool for opioids: Low. 9. Recreational drug use: The patient denies. 10. Functional assessment tool: 37/70. [place] [address] PAIN MANAGEMENT CONSULTATION Name: CLARISSA CHAVEZ I Room: [facility]#: [id number] Admission: 02/07/20 Attend Phys: Marlene Simms MD Discharge: Date of : 46 Report #: [id number] 11. Tobacco: The patient denies use of tobacco. 12. Alcohol: The patient rarely drinks alcoholic beverages. PHYSICAL EXAMINATION: GENERAL: The patient is a well-developed, well-nourished, white female. Appears her stated age. She is somewhat obese. She is alert and oriented x 3. Her affect is appropriate. Speech is fluent. HEENT: Normocephalic, atraumatic. Extraocular eye muscles intact. Sclerae nonicteric. Mucous membranes are moist. The patient is wearing a facial covering. NECK: Without adenopathy or JVD. HEART: History of atrial fibrillation, history of grade 2 systolic ejection murmur. ABDOMEN: Nontender. Bowel sounds present. LUNGS: Clear. MUSCULOSKELETAL: Upper extremity muscle strength is judged to be 5/5 for the major muscle groups in the upper extremity. The patient is with some discomfort in her shoulders. She has pain in the low back area. She has pain that radiates down into the L4-L5 dermatomal distribution. IMPRESSION: 1. History of lumbar radiculopathy at L4-L5 dermatomal area, improved after the last epidural injection. 2. Low back pain. 3. Complex medical management, using opioids to help control pain. 4. Shoulder pain. 5. Left knee pain. 6. History of bilateral knee replacements. 7. Hypothyroidism. 8. History of atrial fibrillation. RECOMMENDATIONS: We discussed treatment options with the patient. At this juncture, we will continue with her medications of [place] 7.5 mg 1 p.o. q. 4-6 hours. She also will continue with gabapentin 300 mg t.i.d. and 2 tablets at 600 mg at bedtime, a total of 5 tablets daily. The patient will also continue with hydrocodone 7.5 mg, a total of 120 tablets have been provided. The patient will call us if she has any concerns. We would like to thank you for letting us participate in her care. We hope she continues to improve. <ELECTRONICALLY SIGNED> By: Marlene Simms MD 03/01/20 0838 [id number]. Howard Simms MD /nt
== END ==
LOC: M.PC 10:40
PROVIDERS: ATTEND Anesthesiology Pain Medicine
DX: M54.5 Low back pain (principal); E03.9 Hypothyroidism, unspecified; I48.91 Unspecified atrial fibrillation; M25.562 Pain in left knee; F11.20 Opioid dependence, uncomplicated; Z96.653 Presence of artificial knee joint, bilateral; Z87.39 Personal history of other diseases of the musculoskeletal system and connective tissue; Z88.8 Allergy status to other drugs, medicaments and biological substances; Z79.899 Other long term (current) drug therapy

== ENCOUNTER → 2020-02-17 | Outpatient (CLI) | payer OTHER ==
[~2020-02-17] VITALS: Ht 157.5 cm; Wt 89.4 kg
[2020-02-17] VITALS (7 sets, daily range): BP systolic 107–147; BP diastolic 54–109
--- NOTE | ~2020-02-17 | H ---
[place] [address] HISTORY AND PHYSICAL Name: CLARISSA CHAVEZ I [facility]: [facility] [id number] Admission: 02/17/20 Attend Phys: Mode Fontaine MD, F Discharge: Date of : 46 Report #: [id number] THIS REPORT FOR: //name// cc: Ashok Garcia Vincent R. DO ~ CC: Mode Garcia DO DATE OF SERVICE: 02/17/2020 PREOPERATIVE HISTORY AND PHYSICAL HISTORY OF PRESENT ILLNESS: The patient is a 70-year-old single white female who was brought to the outpatient department to undergo cardiac catheterization. The patient has a long history of hypertension and hyperlipidemia. She has no previous history of heart disease. However, she does have a long history of a heart murmur. She does have occasional edema and shortness of breath. She had a recent echocardiogram that showed evidence of moderate aortic stenosis. She had a routine ECG that showed atrial fibrillation. I actually saw her for the first time in the Cardiology clinic on 12/15. The duration of her atrial fibrillation was unclear and I did not recommend attempts at cardioversion. She was started on anticoagulation with Xarelto. However, recently she complained of occasional episodes of chest pressure. It is not related to exertion or meals. She also notes some exertional dyspnea. She saw my nurse practitioner on 01/11 who recommended a Lexiscan Cardiolite and this was performed here at [place] on 01/26. This showed a moderate reversible defect involving the mid to distal anterolateral wall with an ejection fraction of 63%. This was consistent with ischemia and felt to be a moderate risk study. I recommended she undergo cardiac catheterization. PAST MEDICAL HISTORY: Otherwise significant for appendectomy, bladder suspension, knee surgery, hypertension, hyperlipidemia, Nugent's esophagus. MEDICATIONS: On admission included amlodipine, Lasix, Neurontin, Synthroid, Relafen. She stopped her Xarelto 2 days ago, simvastatin, and Desyrel. She was recently started on Prinivil because of high blood pressure. ALLERGIES: SHE HAS A PREVIOUS REACTION TO IV CONTRAST. FAMILY HISTORY: Significant for heart disease. SOCIAL HISTORY: She is . No smoking. No alcohol abuse. REVIEW OF SYSTEMS: No history of stroke, asthma, peptic ulcer disease, liver disease, kidney disease, cancer, psychiatric illness, [place] [address] HISTORY AND PHYSICAL Name: CLARISSA CHAVEZ I Room: [facility]#: [id number] Admission: 02/17/20 Attend Phys: Mode Fontaine MD, F Discharge: Date of : 46 Report #: [id number] PHYSICAL EXAMINATION: GENERAL: Revealed an elderly female, appeared in no distress. VITAL SIGNS: She had a blood pressure of 140/90, pulse is 70 and irregular. HEENT: She was anicteric. Mucous membranes are moist. NECK: Veins do not appear distended. CHEST: Clear to auscultation. CARDIOVASCULAR: Irregular rhythm, grade 4 systolic ejection murmur at the left sternal border. ABDOMEN: Obese. EXTREMITIES: Had no edema. SKIN: Warm and dry. LABORATORY DATA: Her recent lab work; BUN 27, creatinine 0.9. Cholesterol 145, triglycerides 120, HDL 61, LDL 86. Normal hemoglobin. TSH 4.5. A carotid Doppler study showed no significant stenosis. She was noted to have an abnormal thyroid. IMPRESSION AND RECOMMENDATIONS: 1. Chest pain. Possible angina. Abnormal nuclear stress test. Recommend cardiac catheterization. 2. Persistent atrial fibrillation. The patient has been anticoagulated. 3. Hypertension. The patient on a calcium maurice and DAVID inhibitor. 4. Aortic stenosis. Recommend right and left heart catheterization. 5. Mild carotid stenosis. 6. Hyperlipidemia. The patient is on a statin drug. 7. Abnormal thyroid. The patient referred to Endocrinology. By: [id number] Fontaine MD, FACC /nt
[2020-02-17 08:07] LABS: HEMATOCRIT 37.4 % (37.0-47.0); HEMOGLOBIN 12.6 gm/dL (12.0-15.0); MCH 30.1 pg (26.0-34.0); MCHC 33.8 g/dL (28.0-37.0); MPV 7.8 fl. (7.2-11.1); RBC 4.2 mil/uL (4.20-5.00); RDW-CV 13.6 % (10.5-14.5); WBC 5.9 thou/uL (4.0-11.0)
[2020-02-17 08:16] LABS: APTT 25.8 Seconds (25.0-31.3); PROTIME 10.3 Seconds (9.20-11.50)
[2020-02-17 08:19] LABS: ANION GAP 5 mmol/L (7-16); BUN 33 mg/dL (7-18); CALCIUM 8.6 mg/dL (8.5-10.1); CHLORIDE 105 mmol/L (98-107); CO2 31 mmol/L (21-32); CREATININE 1.4 mg/dL (0.6-1.3); GLUCOSE 107 mg/dL (70-99); POTASSIUM 4.1 mmol/L (3.5-5.1); SODIUM 141 mmol/L (136-145)
[2020-02-17 08:23] LABS: ALBUMIN 3.8 g/dL (3.4-5.0); ALKALINE PHOSPHATASE 46 U/L (46-116); CHOLESTEROL 153 mg/dL (<200); HDL CHOLESTEROL 63 mg/dL (>40); LDL CHOLESTEROL 76 mg/dL (<100); SGOT 14 U/L (15-37); SGPT 16 U/L (30-65); TC:HDL 2.4 Ratio (Not establshd); TOTAL BILIRUBIN 0.7 mg/dL (<0.1-1.0); TOTAL PROTEIN 7.2 g/dL (6.4-8.2); TRIGLYCERIDE 73 mg/dL (<150); VLDL 15 mg/dL (<40)
[2020-02-17 08:24] LABS: SERUM ASSESSMENT Clear
[2020-02-17 10:16] LABS: BE -0.1 mmol/L (-2 to +3); PCO2 46.5 mmHg (35.0-45.0); PO2 70.4 mmHg (75.0-100.0)
[2020-02-17 10:39] LABS: BE -3.7 mmol/L (-2 to +3); PCO2 44.2 mmHg (35.0-45.0); pH 7.321 (7.340-7.450)
[2020-02-17 10:41] LABS: PO2 39.4 mmHg (75.0-100.0)
--- NOTE | 2020-02-17 11:09 | EKG ---
[place] [address] ELECTROCARDIOGRAM REPORT Name: CLARISSA CHAVEZ I Room: [facility]#: [id number] Admission: 02/17/20 Attend Phys: Mode Fontaine MD Discharge: Date of : 46 Date of Service: 02/17/20847 Report #: [id number] THIS REPORT FOR: //name// [facility] Test Date: 2020-02-17 Test Time: 08:48:13 Pat Name: CLARISSA CHAVEZ Department: Room: Gender: Counsel: : 1950 Requested By: Mode Fontaine Order Number: [id number] Reading MD: Mode Fontaine Measurements Intervals [place] Rate: 84 P: GA: QRS: -14 QRSD: 81 T: 52 QT: 353 QTc: 418 Interpretive Statements Atrial fibrillation No previous ECG available for comparison Electronically Signed On 02-17-2020 11:09:49 CDT by Mode Fontaine [email or web address] <ELECTRONICALLY SIGNED> By: Mode Fontaine MD, [facility] 02/17/20 1109 7 0848 Mode Fontaine MD, [facility] /EPI
--- NOTE | 2020-02-17 15:06 | EKG ---
[place] [address] ELECTROCARDIOGRAM REPORT Name: CLARISSA CHAVEZ I Room: [facility]#: [id number] Admission: 02/17/20 Attend Phys: Mode Fontaine MD Discharge: Date of : 46 Date of Service: 02/17/20 1213 Report #: [id number] THIS REPORT FOR: //name// [facility] Test Date: 2020-02-17 Test Time: 12:13:17 Pat Name: CLARISSA COLEYN Department: Room: Gender: F Breaker Up: : 1950 Requested By: Mode Fontaine Order Number: [id number] Reading MD: Mode Fontaine Measurements Intervals [place] Rate: 119 P: [place]: QRS: -18 QRSD: 79 T: 131 QT: 327 QTc: 461 Interpretive Statements Atrial fibrillation Ventricular premature complex Borderline left axis deviation Nonspecific T abnormalities, lateral leads Compared to ECG 02/17/2020 08:48:13 Ventricular premature complex(es) now present Electronically Signed On 02-17-2020 15:06:40 CDT by Mode Fontaine [email or web address] <ELECTRONICALLY SIGNED> By: Mode Fontaine MD, FAC 02/17/20 1506 1213 1213 Mode Fontaine MD, [facility] /EPI
--- NOTE | 2020-02-17 17:45 | CARD ---
[address] [address] CARDIAC CATH REPORT Name: CLARISSA CHAVEZ I Room: [facility] RUBINA Franck#: [id number] Admission: 02/17/20 Attend Phys: Mode Fontaine MD, F Discharge: Date of : 46 Report #: [id number] THIS REPORT FOR: //name// cc: Ashok Garcia Vincent R. DO ~ APPROVED REPORT Study performed: 02/17/2020 08:34:47 Patient Details Patient Status: Out-Patient Room #: The patient is a 70 year-old female Event Personnel Mode Fontaine Product Development Chemist, Tenisha Montejo RN Appointment Clerk, Dia Kennedy Appointment Clerk, Shirlene Leslie RTR Scrub, Bertha Wood RTR Monitor, Lambert Bazan VP PURCHASING Monitor Procedures Performed Art Access - R femoral artery, Johnie Access - R femoral vein , Right and Left Heart Cath w/or w/o Coronarie RLHC , Venous Hemostasis with Manual pressure, Arterial Hemostasis w/ Mynx and aortic root injection Indication Atrial fibrillation, Dyspnea, Positive stress test, Valvular heart disease, Chest pain, Murmur Risk Factors Hypertension Admission/Lab Medications/Medications given during procedure Solumedrol IV 125 mg, Benadryl IV 50 mg Procedure Narrative The patient was brought electively to the Cardiac Catheterization Laboratory and was prepped and draped in a sterile manner. The right femoral was infiltrated with 2% Lidocaine subcutaneous anesthesia. A Right Heart Catheterization was performed with a 7 Fr. [place]-Briseyda catheter and pressure were recorded. Cardiac outputs were obtained by the Lilo and Thermal Dilution method. A 7Fr X 11cm sheath was inserted into the right femoral artery and right femoral vein. Coronary angiography was performed using coronary diagnostic catheters. The right coronary system [place] [address] CARDIAC CATH REPORT Name: CLARISSA CHAVEZ I [id number] Admission: 02/17/20 Attend Phys: Mode Fontaine MD, F Discharge: Date of : 48 Report #: [id number] a 6F JR4 catheter. The left coronary system was accessed and visualized with a 6F JL4 catheter. The left ventricle was accessed and visualized with a 6F Pigtail and 6F Kasandra dual lumen catheter. Left ventricular/Aortic Valve gradient assessed via kasandra catheter with simultaneous pressures. Left ventriculogram was performed in JOHNSON projection. An aortogram of the ascending aorta was performed. Closure device was deployed with a 6 Fr Mynx for right femoral artery. Hemostasis was obtained with manual pressure following sheath removal without any complications. The patient tolerated the procedure well and there were no complications associated with the procedure. There was no hematoma. Manual pressure right femoral vein. PA and arterial saturations were obtained. Aortic root injection was performed with the pigtail catheter. Intraoperative Conscious Sedation Sedation start time: 09:27 Case end Time: 10:33 Versed 2 mg Fluoro Time: 9.4 minutes Dose: DAP [id number] cGycm2 1275 mGy Contrast Type and Amount: Visipaque 100 ml Coronary Angiography The patient's coronary anatomy is right dominant. [place] Artery Percent Stenosis Left Main: 0 % Prox LAD: 0 % Mid/Distal LAD: 50 % Circumflex: 0 % RCA: 30 % Ramus: % Left Ventriculography The left ventricular ejection fraction is estimated to be 50-55%. Left ventricular wall motion abnormalities are not present. There is no mitral insufficiency. No aortic insufficiency noted on aortic root injection. Hemodynamics The right atrial mean pressure is 8 mmHg. The right ventricular pressure is 38/6 mmHg. The pulmonary artery pressure is 36/18 mmHg with a mean of 22 mmHg. The mean pulmonary capillary wedge pressure is 18 mmHg. The aortic pressure is 141/86 mmHg with a mean of 110 mmHg. The left ventricular pressure is 179/16 mmHg with a mean of mmHg. The left ventricular end diastolic pressure is 16 mmHg. Pullback from the left ventricle to the aorta revealed a 40 mm gradient across the aortic valve. PaO2 saturation is 73.10 %. Arterial saturation is 91.90 %. The cardiac [place] [address] CARDIAC CATH REPORT Name: CLARISSA CHAVEZ Camille Room: [facility]#: [id number] Admission: 02/17/20 Attend Phys: Mode Fotnaine MD, F Discharge: Date of : 46 Report #: [id number] assessed using Lilo and thermodilution. The cardiac output using the Lilo method is 5.44 L/min. The cardiac index using the Lilo method is 2.87 L/min/m2. The cardiac output using thermo method is 5.22 L/min. The cardiac index using thermo method is 2.75 L/min/m2. The peak gradient across the aortic valve is 40 mmHg. The mean aortic valve gradient is 42.74 mmHg. The aortic valve area is 0.9 cm2. Conclusion 1. no significant CAD with a maximal stenosis of 50% noted in the distal LAD 2. LVEF 50-55% 3. moderate aortic stenosis noted with an aortic vavle area of 0.9 cm squared 4. false positive nuclear stress test Recommendations Aggressive Medical Therapy <ELECTRONICALLY SIGNED> By: Mode Fontaine MD, FACC 02/17/20 1745 [id number] Fontaine MD, FACC /INF
== END ==
LOC: M.CL 02-15 09:00
PROVIDERS: ATTEND Internal Medicine Cardiovascular Disease
DX: I48.91 Unspecified atrial fibrillation (principal); R94.30 Abnormal result of cardiovascular function study, unspecified; R13.10 Dysphagia, unspecified; I10 Essential (primary) hypertension; I35.0 Nonrheumatic aortic (valve) stenosis; K22.70 Barrett's esophagus without dysplasia; E78.5 Hyperlipidemia, unspecified; Z79.899 Other long term (current) drug therapy; Z98.890 Other specified postprocedural states; Z72.89 Other problems related to lifestyle; Z82.49 Family history of ischemic heart disease and other diseases of the circulatory system

== ENCOUNTER → 2020-03-06 | Outpatient (CLI) | payer OTHER ==
--- NOTE | 2020-03-15 09:35 | PAINCON ---
[address] [address] PAIN MANAGEMENT CONSULTATION Name: SCOTT,CLARISSA Camille Room: [facility] RUBINA RitterDeniseKirby.#: [id number] Admission: 03/06/20 Attend Phys: Marlene Simms MD Discharge: Date of : 46 Report #: [id number] THIS REPORT FOR: //name// cc: Ashok Garcia Vincent R. DO ~ THIS REPORT FOR: //name// CC: Marlene Garcia DATE OF SERVICE: 03/06/2020 CHIEF COMPLAINT: Low back and left leg pain. HISTORY: The patient is a 70-year-old female who has been followed in the pain clinic because of chronic pain. She has continued to have pain in the low back area. It radiates down into her left leg. She rates her pain as a 5/10. Also, she has pain in her shoulders. She has had a knee replacement. She has pain in her foot. She rates pain in the left arm as 5. She noticed that she has problems with arthritis in her elbow. She has been found to have some problem with aortic valve. She had a stress test and is followed by her primary physician. She has returned to the pain clinic and would like to continue with her medications. ALLERGIES: IODINE, AZITHROMYCIN. The patient tolerates iodine on the skin. CURRENT MEDICATIONS: Norvasc, simvastatin 20 mg, levothyroxine 75 mcg, gabapentin 300 mg t.i.d., tizanidine 4 mg t.i.d., trazodone 50 mg at bedtime, Tylenol Extra Strength, Relafen 750 mg b.i.d., fish oil 1200 mg, melatonin 10 mg, turmeric 1 mg b.i.d., vitamin B12 complex, multivitamins, Lasix 20 mg. PAIN CLINIC ASSESSMENT AND PQRS: 1. The patient has some pain and discomfort in her knees. She has had bilateral knee replacements. She has some arthritic complaints in her shoulders. 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 2. Height 5 feet 2 inches, weight 202 pounds, BMI is 37.1. 3. Vital Signs: Blood pressure 142/87, heart rate 98, respiratory rate 20, room air saturation is 93%, temperature 98.9. 4. Pain intensity: 4/10. 5. Fall history: The patient has not fallen since we saw her last. 6. Blood thinner: The patient has stopped taking her blood thinning medication. 7. Hypertension: The patient is being treated for hypertension. 8. Opioids greater than 6 weeks: The patient received medication from one source the pain clinic. 9. Risk assessment tool: Low [place] [address] PAIN MANAGEMENT CONSULTATION Name: CLARISSA CHAVEZ I Room: [facility]#: [id number] Admission: 03/06/20 Attend Phys: Marlene Simms MD Discharge: Date of : 46 Report #: [id number] 10. Recreational drug use: The patient denies. 11. Functional assessment tool: 3750. 12. Tobacco: The patient denies use of tobacco. 13. Alcohol: The patient rarely drinks alcoholic beverages. PHYSICAL EXAMINATION: GENERAL: The patient is a well-developed, well-nourished white female. Appears her stated age. She is somewhat obese. She is alert and oriented x 3. Her affect is appropriate. Speech is fluent. HEENT: Normocephalic, atraumatic. Extraocular eye muscles are intact. Sclerae nonicteric. Mucous membranes moist. The patient is wearing a facial covering. NECK: Without adenopathy or JVD. HEART: History of grade 2 systolic ejection murmur, ejection fraction 40%. MUSCULOSKELETAL: The patient has some discomfort in her shoulders. She has some pain in the low back area. She has pain that radiates down to her left leg in the L4-L5 dermatomal distribution. EXTREMITIES: Upper extremity muscle strength judged to be 5-/5 for the major muscle groups. The patient without significant scoliosis, kyphosis or lordosis. IMPRESSION: 1. History of lumbar radiculopathy in L4-L5 dermatomal area. 2. Low back pain. 3. Complex medical management using opioids to help control pain. 4. Shoulder pain. 5. Left knee pain. 6. History of bilateral knee replacements. 7. Hypothyroidism. RECOMMENDATIONS: We discussed treatment options with the patient. Risks and benefits of opioid medications again were reviewed. Possible complication of the procedures were discussed. The patient elects to continue with her medications. A script for her medication of hydrocodone has been renewed. The patient will call us if she has any concerns. We would like to thank you for letting us participate in her care. We hope she continues to improve. <ELECTRONICALLY SIGNED> By: Marlene Simms MD 03/15/20 0935 0820 [id number]. Howard Simms MD /nt
== END ==
LOC: M.PC 08:14
PROVIDERS: ATTEND Anesthesiology Pain Medicine
DX: M54.5 Low back pain (principal); M79.605 Pain in left leg; G89.29 Other chronic pain; E03.9 Hypothyroidism, unspecified; M25.562 Pain in left knee; M25.519 Pain in unspecified shoulder; Z87.39 Personal history of other diseases of the musculoskeletal system and connective tissue; Z96.653 Presence of artificial knee joint, bilateral

== ENCOUNTER → 2020-04-03 | Outpatient (CLI) | payer OTHER ==
--- NOTE | 2020-04-04 15:45 | PAINCON ---
[address] [address] PAIN MANAGEMENT CONSULTATION Name: CLARISSA CHAVEZ I Room: [facility] RUBINA CordonDenise#: [id number] Admission: 04/03/20 Attend Phys: Marlene Simms MD Discharge: Date of : 46 Report #: [id number] THIS REPORT FOR: //name// cc: Ashok Garcia Vincent R. DO ~ CC: Marlene Garcia DATE OF SERVICE: 04/03/2020 CHIEF COMPLAINT: Left shoulder pain and low back pain. HISTORY: The patient is a 70-year-old female who has been followed in the pain clinic because of chronic pain. She has pain in the sciatic area. This involves her left leg with pain radiating down into the lower portion with discomfort. She rates her pain as a 5/10. She feels that her medications of [place] 7.5/325 are helpful. She also feels that the Zanaflex medication is helpful. She would like to have both the hip and the shoulder area injected. She is aware that she is unable to have both done at the same time. She is still taking her blood thinning medication. She will stop taking the Eliquis and return for an epidural steroid injection in the low back area. She has noticed some difficulty changing her clothes. Going from sleeveless clothing to clothes with sleeves poses a bigger problem. She is unable to raise her arms, particularly the left side very much above the horizon. She has been using Salonpas patches. She feels that, that has been somewhat helpful for her left arm. She would like to have her medications renewed today and would return in the near future for an additional epidural injection. ALLERGIES: IODINE, AZITHROMYCIN. The patient tolerates iodine on skin. CURRENT MEDICATIONS: Norvasc, simvastatin, levothyroxine 75 mcg, gabapentin 300 mg t.i.d., tizanidine 4 mg t.i.d., trazodone 50 mg at bedtime, Tylenol Extra Strength, Relafen 750 mg b.i.d., fish oil 1200 mg, melatonin 10 mg, turmeric 1 mg b.i.d., vitamin B12 complex, multivitamins, Lasix 20 mg, Eliquis. PAIN CLINIC ASSESSMENT AND PQRS: 1. The patient has some pain and discomfort in her knees. She has had bilateral knee replacements. She has some arthritic changes in her shoulders. She is not being treated for rheumatoid arthritis. 2. Height 5 feet 2 inches, weight 199 pounds, BMI is 36. 3. Vital Signs: Blood pressure 141/93, heart rate 93, respiratory rate 16, room air saturation 94%, temperature 98.2. 4. Pain intensity, 5/10. 5. Fall history. The patient has not fallen in the last 3 [place] [address] PAIN MANAGEMENT CONSULTATION Name: CLARISSA CHAVEZ I [id number] Admission: 04/03/20 Attend Phys: Marlene Simms MD Discharge: Date of : 46 Report #: [id number] 6. Blood thinner. The patient is on a blood thinning medication, Eliquis. 7. Hypertension. The patient is being treated for hypertension. 8. Opioids greater than 6 weeks. The patient received medication from one source, the pain clinic. 9. Risk assessment tool, low for opioid use. 10. Functional assessment tool, reviewed. 11. Recreational drug use. The patient denies. 12. Tobacco. The patient denies use of tobacco. 13. Alcohol. The patient rarely drinks alcoholic beverages. PHYSICAL EXAMINATION: GENERAL: The patient is a well-developed, well-nourished, white female, somewhat obese. She is alert and oriented x 3. Her affect is appropriate. Speech is fluent. The patient is wearing a facial covering. NECK: Without adenopathy or JVD. HEART: Regular rate. Grade 2 systolic ejection murmur, ejection fraction history of 40%. MUSCULOSKELETAL: The patient has some discomfort in her shoulders, left side more problematic than the right. The patient has limited ability to move her to raise her arms directly over her head. The patient has had pain in the L4-L5 dermatomal distribution. The patient without significant scoliosis, kyphosis or lordosis. IMPRESSION: 1. History of lumbar radiculopathy, L4-L5. 2. Low back pain. 3. Complex medical management using opioids to help control pain. 4. Right and left shoulder pain, left more problematic. 5. Left knee pain, status post bilateral knee replacements. 6. Hypothyroidism. RECOMMENDATIONS: We discussed treatment options with the patient. At this juncture, we will continue with the patient's pain medications, [place] 7.5 mg 1 p.o. q.i.d. The patient will stop her Eliquis 3 days prior to an injection. A script for her medications have been sent to her pharmacy. She will continue with gabapentin 300 mg. She will continue with Zanaflex 4 mg 1 p.o. t.i.d. We would like to thank you for letting us participate in her care. We hope she continues to improve. <ELECTRONICALLY SIGNED> By: Marlene Simms MD 04/04/20 1545 [id number]. MD ULICES Quinones
== END ==
LOC: M.PC 09:45
PROVIDERS: ATTEND Anesthesiology Pain Medicine
DX: M54.5 Low back pain (principal); M25.512 Pain in left shoulder; F11.20 Opioid dependence, uncomplicated; M25.511 Pain in right shoulder; M25.562 Pain in left knee; E03.9 Hypothyroidism, unspecified; Z96.653 Presence of artificial knee joint, bilateral; Z87.39 Personal history of other diseases of the musculoskeletal system and connective tissue; Z88.8 Allergy status to other drugs, medicaments and biological substances; Z79.899 Other long term (current) drug therapy

== ENCOUNTER → 2020-04-12 | Outpatient (CLI) | payer OTHER | END | disposition home or self-care (01) | LOC: M.PC 10:36 | PROVIDERS: ATTEND Anesthesiology Pain Medicine | DX: M54.16 Radiculopathy, lumbar region (principal); G89.29 Other chronic pain; I10 Essential (primary) hypertension; Z98.890 Other specified postprocedural states; Z96.653 Presence of artificial knee joint, bilateral; Z79.899 Other long term (current) drug therapy ==

== ENCOUNTER → 2020-06-12 | Outpatient (CLI) | payer OTHER | LOC: M.PC 08:00 | PROVIDERS: ATTEND Anesthesiology Pain Medicine | DX: M25.511 Pain in right shoulder (principal); M25.512 Pain in left shoulder; E03.9 Hypothyroidism, unspecified; M25.562 Pain in left knee; M54.5 Low back pain; F11.20 Opioid dependence, uncomplicated; F10.10 Alcohol abuse, uncomplicated; Z96.653 Presence of artificial knee joint, bilateral ==

== ENCOUNTER → 2020-06-19 | Outpatient (CLI) | payer OTHER ==
[~2020-06-19] MED LIST changes: +VITAMIN D3250 MCG PO
== END | disposition home or self-care (01) ==
LOC: M.PC 08:04
PROVIDERS: ATTEND Anesthesiology Pain Medicine
DX: M75.52 Bursitis of left shoulder (principal); M75.51 Bursitis of right shoulder; M54.16 Radiculopathy, lumbar region; I10 Essential (primary) hypertension; R73.03 Prediabetes; E03.9 Hypothyroidism, unspecified; I48.91 Unspecified atrial fibrillation; Z90.49 Acquired absence of other specified parts of digestive tract; Z96.653 Presence of artificial knee joint, bilateral; Z91.041 Radiographic dye allergy status; Z88.1 Allergy status to other antibiotic agents; Z79.899 Other long term (current) drug therapy; M54.5 Low back pain; Z79.890 Hormone replacement therapy; Z79.01 Long term (current) use of anticoagulants

== ENCOUNTER → 2020-07-10 | Outpatient (CLI) | payer OTHER | LOC: M.PC 09:12 | PROVIDERS: ATTEND Anesthesiology Pain Medicine | DX: M75.52 Bursitis of left shoulder (principal); M75.51 Bursitis of right shoulder; E03.9 Hypothyroidism, unspecified; M25.562 Pain in left knee; F11.20 Opioid dependence, uncomplicated; Z87.39 Personal history of other diseases of the musculoskeletal system and connective tissue; Z79.899 Other long term (current) drug therapy ==

== ENCOUNTER → 2020-09-04 | Outpatient (CLI) | payer OTHER | LOC: M.PC 09:37 | PROVIDERS: ATTEND Anesthesiology Pain Medicine | DX: E03.9 Hypothyroidism, unspecified (principal); I10 Essential (primary) hypertension; M54.5 Low back pain; I48.91 Unspecified atrial fibrillation; R73.03 Prediabetes; R01.1 Cardiac murmur, unspecified; Z96.653 Presence of artificial knee joint, bilateral ==

== ENCOUNTER → 2020-09-18 | Outpatient (CLI) | payer OTHER | END | disposition home or self-care (01) | LOC: M.PC 09:56 | PROVIDERS: ATTEND Anesthesiology Pain Medicine | DX: M54.16 Radiculopathy, lumbar region (principal); M54.5 Low back pain; G89.29 Other chronic pain; M25.511 Pain in right shoulder; M25.512 Pain in left shoulder; E03.9 Hypothyroidism, unspecified; M25.562 Pain in left knee; I10 Essential (primary) hypertension; I48.91 Unspecified atrial fibrillation; Z98.890 Other specified postprocedural states; Z79.899 Other long term (current) drug therapy; Z96.653 Presence of artificial knee joint, bilateral; Z90.49 Acquired absence of other specified parts of digestive tract; Z88.8 Allergy status to other drugs, medicaments and biological substances; Z91.041 Radiographic dye allergy status ==

== ENCOUNTER → 2020-10-30 | Outpatient (CLI) | payer OTHER | LOC: M.PC 10:08 | PROVIDERS: ATTEND Anesthesiology Pain Medicine | DX: G89.29 Other chronic pain (principal); M54.5 Low back pain; M25.511 Pain in right shoulder; M25.512 Pain in left shoulder; M25.562 Pain in left knee; I10 Essential (primary) hypertension; I48.91 Unspecified atrial fibrillation; E03.9 Hypothyroidism, unspecified; Z90.49 Acquired absence of other specified parts of digestive tract; Z96.653 Presence of artificial knee joint, bilateral; Z88.8 Allergy status to other drugs, medicaments and biological substances; Z79.891 Long term (current) use of opiate analgesic; Z79.899 Other long term (current) drug therapy ==

== ENCOUNTER → 2020-12-25 | Outpatient (CLI) | payer OTHER | LOC: M.PC 09:13 | PROVIDERS: ATTEND Anesthesiology Pain Medicine | DX: M54.16 Radiculopathy, lumbar region (principal); M54.5 Low back pain; M25.511 Pain in right shoulder; M25.512 Pain in left shoulder; M25.562 Pain in left knee; E03.9 Hypothyroidism, unspecified; Z79.891 Long term (current) use of opiate analgesic; Z96.653 Presence of artificial knee joint, bilateral ==

== ENCOUNTER → 2021-01-08 | Outpatient (CLI) | payer OTHER | LOC: M.PC 09:31 | PROVIDERS: ATTEND Anesthesiology Pain Medicine | DX: M54.16 Radiculopathy, lumbar region (principal); M54.5 Low back pain; M25.511 Pain in right shoulder; M25.522 Pain in left elbow; E03.9 Hypothyroidism, unspecified; Z79.899 Other long term (current) drug therapy; Z79.891 Long term (current) use of opiate analgesic ==

== ENCOUNTER → 2021-01-29 | Outpatient (CLI) | payer OTHER ==
[~2021-01-29] MED LIST changes: +DICLOFENAC35 MG PO; +GLUCOSAMINE-CH1 EACH PO
== END ==
LOC: M.PC 11:47
PROVIDERS: ATTEND Anesthesiology Pain Medicine
DX: M54.5 Low back pain (principal); M54.16 Radiculopathy, lumbar region; M25.511 Pain in right shoulder; M25.512 Pain in left shoulder; M25.562 Pain in left knee; Z96.653 Presence of artificial knee joint, bilateral; E03.9 Hypothyroidism, unspecified; Z79.891 Long term (current) use of opiate analgesic; Z88.1 Allergy status to other antibiotic agents; Z88.8 Allergy status to other drugs, medicaments and biological substances

== ENCOUNTER → 2021-02-19 | Outpatient (CLI) | payer OTHER | END | disposition home or self-care (01) | LOC: M.PC 09:54 | PROVIDERS: ATTEND Anesthesiology Pain Medicine | DX: M54.5 Low back pain (principal); G89.29 Other chronic pain; M25.512 Pain in left shoulder; M25.511 Pain in right shoulder; I10 Essential (primary) hypertension; E11.9 Type 2 diabetes mellitus without complications; E03.9 Hypothyroidism, unspecified; I48.91 Unspecified atrial fibrillation; Z98.890 Other specified postprocedural states; Z79.899 Other long term (current) drug therapy; Z79.01 Long term (current) use of anticoagulants; Z90.49 Acquired absence of other specified parts of digestive tract; Z96.653 Presence of artificial knee joint, bilateral; Z79.891 Long term (current) use of opiate analgesic; Z88.8 Allergy status to other drugs, medicaments and biological substances; Z91.041 Radiographic dye allergy status ==

== ENCOUNTER → 2021-03-19 | Outpatient (CLI) | payer OTHER | LOC: M.PC 10:45 | PROVIDERS: ATTEND Anesthesiology Pain Medicine | DX: M54.16 Radiculopathy, lumbar region (principal); M25.511 Pain in right shoulder; M25.512 Pain in left shoulder; M25.612 Stiffness of left shoulder, not elsewhere classified; E03.9 Hypothyroidism, unspecified; Z96.653 Presence of artificial knee joint, bilateral; I10 Essential (primary) hypertension; Z90.49 Acquired absence of other specified parts of digestive tract; Z88.8 Allergy status to other drugs, medicaments and biological substances ==

== ENCOUNTER → 2021-05-14 | Outpatient (CLI) | payer OTHER | LOC: M.PC 10:30 | PROVIDERS: ATTEND Anesthesiology Pain Medicine | DX: M54.16 Radiculopathy, lumbar region (principal); M54.50 Low back pain, unspecified; M25.512 Pain in left shoulder; M12.211 Villonodular synovitis (pigmented), right shoulder; M25.562 Pain in left knee; E03.9 Hypothyroidism, unspecified; Z79.891 Long term (current) use of opiate analgesic ==

== ENCOUNTER → 2021-06-20 | Outpatient (CLI) | payer MEDICARE ==
[~2021-06-20] MED LIST changes: +RELAFEN750 M1 PO
== END | disposition home or self-care (01) ==
LOC: M.PC 11:03
PROVIDERS: ATTEND Anesthesiology Pain Medicine
DX: M54.16 Radiculopathy, lumbar region (principal); G89.29 Other chronic pain; M54.59 Other low back pain; I10 Essential (primary) hypertension; E03.9 Hypothyroidism, unspecified; I48.91 Unspecified atrial fibrillation; M25.511 Pain in right shoulder; M25.512 Pain in left shoulder; Z98.890 Other specified postprocedural states; Z79.899 Other long term (current) drug therapy; Z96.653 Presence of artificial knee joint, bilateral; Z90.49 Acquired absence of other specified parts of digestive tract; Z79.01 Long term (current) use of anticoagulants

== ENCOUNTER → 2021-07-09 | Outpatient (CLI) | payer MEDICARE | LOC: M.PC 10:27 | PROVIDERS: ATTEND Anesthesiology Pain Medicine | DX: M54.16 Radiculopathy, lumbar region (principal); M54.50 Low back pain, unspecified; M25.511 Pain in right shoulder; M25.512 Pain in left shoulder; M25.562 Pain in left knee; E03.9 Hypothyroidism, unspecified; Z88.8 Allergy status to other drugs, medicaments and biological substances; Z79.899 Other long term (current) drug therapy ==